=== PATIENT | female | born 2000 | race Caucasian/White ===

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

== ENCOUNTER 2020-06-20 10:36 | Emergency (ER) | payer OTHER, SELFPAY ==
[2018-10-18 16:38] VITALS: BMI 18.1
[2020-06-20] VITALS (12 sets, daily range): BP systolic 97–125; BP diastolic 52–83; PULSE 56–117; RESP 17; TEMP 36.8; O2SAT 96–100; BMI 16.2
--- NOTE | 2020-06-20 11:02 | DI.CT.S_ITS ---
PROCEDURE: CT ABDOMEN PELVIS W CON INDICATIONS: severe sudden R abd pain, hx of abd surgeries. A history of a negative test is also given. TECHNIQUE: After the administration of intravenous contrast, 5 mm thick sections acquired from the diaphragm to the symphysis. 5 mm coronal and sagittal reformats were acquired. For radiation dose reduction, the following was used: automated exposure control, adjustment of mA and/or kV according to patient size. COMPARISON: [facility], CR, XR ACUTE ABDOMEN SERIES, 06/07/2018, 12:21. [facility], RG, CT ABDOMEN/PELVIS WITH CONTRAST, 10/11/2018, 10:47, (Images only, no report). FINDINGS: Image quality: Excellent. ABDOMEN: Lung bases: Lung bases are clear. Heart size is normal. Solid organs: Liver is normal in size and enhancement. Incidental note is made of focal fatty infiltration adjacent to the falciform ligament, which is not regarded to be pathologic. Gallbladder has been removed. Biliary system is non dilated. Pancreas enhances normally. Spleen is normal in size and enhancement. No adrenal nodules. Kidneys demonstrate normal size and enhancement, without hydronephrosis. Peritoneum and bowel: Bowel loops demonstrate normal wall thickness and caliber. No free air is seen. There is a mild amount of complex free fluid seen within the pelvis, which measures approximately 35 Hounsfield units. Scrutiny is given to the appendix. No appendix is definitely seen, either normal or abnormal. Nodes and vessels: No retroperitoneal or mesenteric adenopathy by size criteria. Aorta and inferior vena cava are normal in size. Miscellaneous: No ventral hernias. PELVIS: Genitourinary: Bladder wall thickness is normal. The uterus appears normal for age. No adnexal masses are seen. Miscellaneous: No inguinal hernias or adenopathy. Bones: No suspicious bony lesions. No vertebral body compression fractures. IMPRESSION: Status post cholecystectomy, without a complication observed. A mild amount of complex free fluid can be seen within the pelvis. Given the negative test, this is felt most likely to be related to a ruptured hemorrhagic cyst. If clinically appropriate, please consider a follow-up pelvic ultrasound for further evaluation. No appendix (either normal or abnormal) is identified on this study. Dictated by: Jama Marcus M.D. on 06/20/2020 at 11:54 Approved by: Jama Marcus M.D. on 06/20/2020 at 12:00
--- NOTE | 2020-06-20 11:05 | ED.ABDPAIN ---
HPI - Abdominal Pain <EDGAR Elizalde - Last Filed: 06/20/20 15:49> General Chief Complaint: Abdominal Pain Stated Complaint: ADOMINAL PAIN Time Seen by Provider: 06/20/20 10:43 Source: patient Mode of arrival: Wheelchair Limitations: no limitations History of Present Illness HPI narrative: 20-year-old female with history of anxiety cholecystectomy, and intussusception, presents to the emergency department for sudden onset of severe abdominal pain that started a few hours ago. She has a history of multiple abdominal surgeries including cholecystectomy and removal a polp with follow-up surgery for possible bleeding. Patient usually sees a radiation control technician from [facility], patient loss saw the provider approximately a month ago. However, today she woke up with significant pain. She had dry he when she attempted to urinate. She denies any nausea, has had intermittent diarrhea which is normal for her. Patient denies any fevers, cough, chest pain, shortness of breath, dizziness, or any other concerns. Related Data Home Medications Medication Instructions Recorded Confirmed ranitidine HCl [Zantac] 150 mg PO DAILY 10/18/18 11/13/18 Previous Rx's Medication Instructions Recorded ondansetron HCl [Zofran] 8 mg PO BID-TID PRN #14 tab 10/23/18 oxycodone-acetaminophen [Percocet] 1 tab PO Q4-6H PRN #14 tab 10/23/18 Allergies Allergy/AdvReac Type Severity Reaction Status Date / Time metoclopramide [From Reglan] AdvReac Anxiety Verified 06/20/20 10:58 Review of Systems <EDGAR Elizalde - Last Filed: 06/20/20 15:49> Review of Systems Narrative: REVIEW OF SYSTEMS: GENERAL: Denies fevers. HENT: No head trauma. CARDIOVASCULAR: No chest pain, palpitations, or orthopnea. RESPIRATORY: No shortness of breath or cough. GASTROINTESTINAL: Complains of abdominal pain, see HPI GENITOURINARY: No flank pain. MUSCULOSKELETAL: No pain, weakness, or trauma. INTEGUMENTARY: No rash, lesions, or pruritus. NEURO: No numbness, tingling, memory loss, confusion, or headaches. PSYCH: No behavior or mood changes. Patient History <EDGAR Elizalde - Last Filed: 06/20/20 15:49> Medical History (Updated 06/20/20 @ 14:51 by EDGAR Elizalde) Anxiety Biliary dyskinesia Chronic abdominal pain Gilbert disease History of Meckel's diverticulum Migraine Surgical History History of arthroscopic knee surgery Hx of cholecystectomy (06/25/18) Family History (Updated 10/19/18 @ 18:24 by Lola Parish DO) Mother Healthy adult Father Healthy adult Sister Healthy adult Sister Healthy adult Sister Healthy adult Social History household members: significant other and other occupational status: student Smoking Status: Never smoker alcohol intake: never substance use type: marijuana Smoking Status: Never smoker alcohol intake frequency: a few times a month Substance Use Type: marijuana Exam <EDGAR Elizalde - Last Filed: 06/20/20 15:49> Initial Vital Signs Initial Vital Signs: Vital Signs Temperature 98.2 F 06/20/20 10:50 Pulse Rate 117 H 06/20/20 10:50 Respiratory Rate 17 06/20/20 10:50 Blood Pressure 125/82 06/20/20 10:50 Pulse Oximetry 100 06/20/20 10:50 PHYSICAL EXAMINATION: GENERAL: Awake and alert, appears to be in pain. HENT: Normocephalic, atraumatic. Hearing intact. Oral mucosa is pink and moist. EYES: Conjunctiva pink, sclera white, no periorbital swelling. CARDIOVASCULAR: S1 and S2 sounds normal. Tachycardia, no murmurs, clicks, or bruits. No pedal edema. RESPIRATORY: Normal respiratory rate, trachea midline, airway patent. No stridor, nasal flaring or accessory muscle use. Lungs are clear in all [place] without wheeze, rhonchi, or crackles. GASTROINTESTINAL: Bowel sounds decreased. Diffuse significant abdominal pain, appears to be slightly worse on the right side. Patient resisting examination. GENITALURINARY: No flank tenderness. MUSCULOSKELETAL: Normal gait and coordination. Equal tone and mass bilaterally. EXTREMITIES: CMS intact, no pedal edema. SKIN: Warm, dry, soft, appropriate color for ethnicity. No lesions, rashes, or wounds to visualized areas. NEURO: Alert and Oriented X 3. Good coordination. No ataxia, or sensory deficits, or cognitive issues. PSYCH: Appropriate affect and mood. <Silvano Dawson DO - Last Filed: 06/20/20 18:22> Initial Vital Signs Initial Vital Signs: Vital Signs Temperature 98.2 F 06/20/20 10:50 Pulse Rate 117 H 06/20/20 10:50 Respiratory Rate 17 06/20/20 10:50 Blood Pressure 125/82 06/20/20 10:50 Pulse Oximetry 100 06/20/20 10:50 Course <EDGAR Elizalde - Last Filed: 06/20/20 15:49> Course Course Narrative: Initially patient reported significant pain, was given Toradol and then hydrocodone. You reported significant improvement. Was able to sleep post medication. Patient was given fluids, lactate was redrawn. Orders Ordered: ED Orders 06/20/20 11:02 CT abdomen pelvis w con Stat 06/20/20 11:30 Complete Blood Count AUTO DIFF Stat Comprehensive Metabolic Panel Stat Lactate (Lactic Acid) Stat Lipase Stat Test Serum,Qual Stat Procalcitonin Stat 06/20/20 12:15 Blood Culture Stat 06/20/20 12:17 COVID19 Stat Discontinued Medications Hydromorphone HCl (Hydromorphone 1 Mg Inj) 0.5 mg IV NOW ONE Stop: 06/20/20 12:18 Last Admin: 06/20/20 12:25 Dose: 0.5 mg Documented by: MMINOR Sodium Chloride (Normal Saline 0.9%) 1,000 mls @ 1,000 mls/hr IV BOLUS ONE Stop: 06/20/20 12:00 Last Infusion: 06/20/20 12:40 Dose: 0 mls/hr Documented by: Admin: 06/20/20 11:39 Dose: 1,000 mls/hr Documented by: MMINOR Sodium Chloride (Normal Saline 0.9%) 1,456.02 mls @ 485.34 mls/hr 30 ml/kg infuse over 3 hr (1456.02 ml) IV NOW ONE Stop: 06/20/20 15:30 Last Infusion: 06/20/20 15:10 Dose: 0 mls/hr Documented by: Admin: 06/20/20 13:22 Dose: 485.34 mls/hr Documented by: MMINOR Piperacillin/Tazobactam/Dextrose (Zosyn) 3.375 gm in 50 mls @ 100 mls/hr IV NOW ONE Stop: 06/20/20 13:03 Ketorolac Tromethamine (Ketorolac 60 Mg/2 Ml Vial) 30 mg IV NOW ONE Stop: 06/20/20 11:02 Last Admin: 06/20/20 11:39 Dose: 30 mg Documented by: MMINOR Ondansetron HCl (Ondansetron 4 Mg/2 Ml Inj) 4 mg IV NOW ONE Stop: 06/20/20 11:02 Last Admin: 06/20/20 11:39 Dose: 4 mg Documented by: MMINOR Ondansetron HCl (Ondansetron 4 Mg/2 Ml Inj) 4 mg IV NOW ONE Stop: 06/20/20 12:18 Last Admin: 06/20/20 12:25 Dose: 4 mg Documented by: MADELYNR Consultations Consultation #1: [id number]: Patient staffed with Dr. Dawson, discussed test, test results, plan of care. Discussed discharge as well. Vital Signs Vital signs: Vital Signs - 8 hr 06/20/20 10:50 06/20/20 10:57 06/20/20 11:00 Temperature 98.2 F Pulse Rate 117 H 112 H 111 H Respiratory Rate 17 Blood Pressure 125/82 125/82 121/83 Pulse Oximetry 100 99 99 06/20/20 11:30 06/20/20 12:00 06/20/20 12:57 Temperature Pulse Rate 90 72 Respiratory Rate Blood Pressure 124/78 119/70 Pulse Oximetry 98 99 100 06/20/20 12:58 06/20/20 13:00 06/20/20 13:30 Temperature Pulse Rate 78 73 66 Respiratory Rate Blood Pressure 97/52 L 98/56 L 97/56 L Pulse Oximetry 96 96 99 06/20/20 14:00 06/20/20 14:30 06/20/20 15:00 Temperature Pulse Rate 61 56 L 71 Respiratory Rate Blood Pressure 101/59 L 99/54 L 113/63 Pulse Oximetry 100 98 100 <Silvano Dawson, DO - Last Filed: 06/20/20 18:22> Orders Ordered: ED Orders 06/20/20 11:02 CT abdomen pelvis w con Stat 06/20/20 11:30 Complete Blood Count AUTO DIFF Stat Comprehensive Metabolic Panel Stat Lactate (Lactic Acid) Stat Lipase Stat Test Serum,Qual Stat Procalcitonin Stat 06/20/20 12:15 Blood Culture Stat 06/20/20 12:17 COVID19 Stat Discontinued Medications Hydromorphone HCl (Hydromorphone 1 Mg Inj) 0.5 mg IV NOW ONE Stop: 06/20/20 12:18 Last Admin: 06/20/20 12:25 Dose: 0.5 mg Documented by: MMINOR Sodium Chloride (Normal Saline 0.9%) 1,000 mls @ 1,000 mls/hr IV BOLUS ONE Stop: 06/20/20 12:00 Last Infusion: 06/20/20 12:40 Dose: 0 mls/hr Documented by: Admin: 06/20/20 11:39 Dose: 1,000 mls/hr Documented by: MMINOR Sodium Chloride (Normal Saline 0.9%) 1,456.02 mls @ 485.34 mls/hr 30 ml/kg infuse over 3 hr (1456.02 ml) IV NOW ONE Stop: 06/20/20 15:30 Last Infusion: 06/20/20 15:10 Dose: 0 mls/hr Documented by: Admin: 06/20/20 13:22 Dose: 485.34 mls/hr Documented by: DOMINIQUE Piperacillin/Tazobactam/Dextrose (Zosyn) 3.375 gm in 50 mls @ 100 mls/hr IV NOW ONE Stop: 06/20/20 13:03 Ketorolac Tromethamine (Ketorolac 60 Mg/2 Ml Vial) 30 mg IV NOW ONE Stop: 06/20/20 11:02 Last Admin: 06/20/20 11:39 Dose: 30 mg Documented by: MMINOR Ondansetron HCl (Ondansetron 4 Mg/2 Ml Inj) 4 mg IV NOW ONE Stop: 06/20/20 11:02 Last Admin: 06/20/20 11:39 Dose: 4 mg Documented by: MMINOR Ondansetron HCl (Ondansetron 4 Mg/2 Ml Inj) 4 mg IV NOW ONE Stop: 06/20/20 12:18 Last Admin: 06/20/20 12:25 Dose: 4 mg Documented by: MMLEONELAR Vital Signs Vital signs: Vital Signs - 8 hr 06/20/20 10:50 06/20/20 10:57 06/20/20 11:00 Temperature 98.2 F Pulse Rate 117 H 112 H 111 H Respiratory Rate 17 Blood Pressure 125/82 125/82 121/83 Pulse Oximetry 100 99 99 06/20/20 11:30 06/20/20 12:00 06/20/20 12:57 Temperature Pulse Rate 90 72 Respiratory Rate Blood Pressure 124/78 119/70 Pulse Oximetry 98 99 100 06/20/20 12:58 06/20/20 13:00 06/20/20 13:30 Temperature Pulse Rate 78 73 66 Respiratory Rate Blood Pressure 97/52 L 98/56 L 97/56 L Pulse Oximetry 96 96 99 06/20/20 14:00 06/20/20 14:30 06/20/20 15:00 Temperature Pulse Rate 61 56 L 71 Respiratory Rate Blood Pressure 101/59 L 99/54 L 113/63 Pulse Oximetry 100 98 100 MDM - Abdominal Pain <EDGAR Elizalde - Last Filed: 06/20/20 15:49> Medical Records Attestation: I reviewed the patient's medical records. Lab Data Attestation: I reviewed the patient's lab results. Result diagrams: 06/20/20 11:30 06/20/20 11:30 Labs: Lab Results 06/20/20 06/20/20 06/20/20 Range/Units 11:30 11:30 11:30 WBC 7.5 (4.5-11.0) X10^3/uL RBC 4.60 (4.0-5.2) X10^6/uL Hgb 14.3 (12.0-16.0) g/dL Hct 41.2 (36-46) % MCV 89.4 (80-100) fL MCH 31.0 (26-34) PG MCHC 34.7 (30-36) % RDW 12.3 (11.6-14.8) % Plt Count 360 (150-400) X10^3/uL Neut % (Auto) 76.6 H (50-75) % Lymph % (Auto) 17.5 L (25-40) % [place] % (Auto) 5.1 (3-14) % Eos % (Auto) 0.4 L (2-4) % Baso % (Auto) 0.4 (0-2) % Neut # (Auto) 5700 (2206-1773) /uL Lymph # (Auto) 1300 (4562-8400) /uL [place] # (Auto) 400 (0-900) /uL Eos # (Auto) 0 (0-450) /uL Baso # (Auto) 0 (0-100) /uL Sodium 140 (137-145) mmol/L Potassium 4.0 (3.4-5.1) mmol/L Chloride 107 (98-107) mmol/L Carbon Dioxide 22 (22-32) mmol/L BUN 7 (7-17) mg/dL Creatinine 0.77 (0.52-1.04) mg/dL Estimated GFR > 60.0 (>60) mL/min BUN/Creatinine Ratio 9.1 (6-22) Glucose 118 H (70-100) mg/dL Lactate 5.2 H* (0.7-2.1) mmol/L Calcium 9.4 (8.4-10.2) mg/dL Total Bilirubin 1.5 H (0.2-1.3) mg/dL AST 21 (14-36) IU/L ALT 15 (<35) IU/L Alkaline Phosphatase 66 (38-126) U/L Total Protein 7.2 (6.3-8.2) g/dL Albumin 4.5 (3.5-5.0) g/dL Globulin 2.7 (1.7-4.1) g/dL Albumin/Globulin Ratio 1.7 (1.0-2.8) Lipase 75 (23-300) U/L Procalcitonin (<0.5) ng/mL Serum , Qual (Negative) COVID-19 PCR (Negative) 06/20/20 06/20/20 06/20/20 Range/Units 11:30 11:30 12:17 WBC (4.5-11.0) X10^3/uL RBC (4.0-5.2) X10^6/uL Hgb (12.0-16.0) g/dL Hct (36-46) % MCV (80-100) fL MCH (26-34) PG MCHC (30-36) % RDW (11.6-14.8) % Plt Count (150-400) X10^3/uL Neut % (Auto) (50-75) % Lymph % (Auto) (25-40) % [place] % (Auto) (3-14) % Eos % (Auto) (2-4) % Baso % (Auto) (0-2) % Neut # (Auto) (0327-8396) /uL Lymph # (Auto) (0698-7966) /uL [place] # (Auto) (0-900) /uL Eos # (Auto) (0-450) /uL Baso # (Auto) (0-100) /uL Sodium (137-145) mmol/L Potassium (3.4-5.1) mmol/L Chloride (98-107) mmol/L Carbon Dioxide (22-32) mmol/L BUN (7-17) mg/dL Creatinine (0.52-1.04) mg/dL Estimated GFR (>60) mL/min BUN/Creatinine Ratio (6-22) Glucose (70-100) mg/dL Lactate (0.7-2.1) mmol/L Calcium (8.4-10.2) mg/dL Total Bilirubin (0.2-1.3) mg/dL AST (14-36) IU/L ALT (<35) IU/L Alkaline Phosphatase (38-126) U/L Total Protein (6.3-8.2) g/dL Albumin (3.5-5.0) g/dL Globulin (1.7-4.1) g/dL Albumin/Globulin Ratio (1.0-2.8) Lipase (23-300) U/L Procalcitonin < 0.05 (<0.5) ng/mL Serum , Qual Negative (Negative) COVID-19 PCR Negative (Negative) 06/20/20 Range/Units 13:57 WBC (4.5-11.0) X10^3/uL RBC (4.0-5.2) X10^6/uL Hgb (12.0-16.0) g/dL Hct (36-46) % MCV (80-100) fL MCH (26-34) PG MCHC (30-36) % RDW (11.6-14.8) % Plt Count (150-400) X10^3/uL Neut % (Auto) (50-75) % Lymph % (Auto) (25-40) % [place] % (Auto) (3-14) % Eos % (Auto) (2-4) % Baso % (Auto) (0-2) % Neut # (Auto) (2234-3070) /uL Lymph # (Auto) (5730-4101) /uL [place] # (Auto) (0-900) /uL Eos # (Auto) (0-450) /uL Baso # (Auto) (0-100) /uL Sodium (137-145) mmol/L Potassium (3.4-5.1) mmol/L Chloride (98-107) mmol/L Carbon Dioxide (22-32) mmol/L BUN (7-17) mg/dL Creatinine (0.52-1.04) mg/dL Estimated GFR (>60) mL/min BUN/Creatinine Ratio (6-22) Glucose (70-100) mg/dL Lactate 1.2 (0.7-2.1) mmol/L Calcium (8.4-10.2) mg/dL Total Bilirubin (0.2-1.3) mg/dL AST (14-36) IU/L ALT (<35) IU/L Alkaline Phosphatase (38-126) U/L Total Protein (6.3-8.2) g/dL Albumin (3.5-5.0) g/dL Globulin (1.7-4.1) g/dL Albumin/Globulin Ratio (1.0-2.8) Lipase (23-300) U/L Procalcitonin (<0.5) ng/mL Serum , Qual (Negative) COVID-19 PCR (Negative) Imaging Data CT scan - abdomen/pelvis: Radiologist's Impression: [address] [id number] Scan ReportSigned Patient: Vanessa Ortiz EMR#: [id number]: 2000:[id number]/Sex: 20 / FDate of Service: 06/20/20Loc: EDAccession Number: [id number] Procedure: CT abdomen pelvis w con Ordering Provider: Mercy Payne PROCEDURE: CT ABDOMEN PELVIS W CON INDICATIONS: severe sudden R abd pain, hx of abd surgeries. A history of a negative test is also given. TECHNIQUE: After the administration of intravenous contrast, 5 mm thick sections acquired from the diaphragm to the symphysis. 5 mm coronal and sagittal reformats were acquired. For radiation dose reduction, the following was used: automated exposure control, adjustment of mA and/or kV according to patient size. COMPARISON: [facility], , XR ACUTE ABDOMEN SERIES, 06/07/2018, 12:21. [facility], RG, CT ABDOMEN/PELVIS WITH CONTRAST, 10/11/2018, 10:47, (Images only, no report). FINDINGS: Image quality: Excellent. ABDOMEN: Lung bases: Lung bases are clear. Heart size is normal. Solid organs: Liver is normal in size and enhancement. Incidental note is made of focal fatty infiltration adjacent to the falciform ligament, which is not regarded to be pathologic. Gallbladder has been removed. Biliary system is non dilated. Pancreas enhances normally. Spleen is normal in size and enhancement. No adrenal nodules. Kidneys demonstrate normal size and enhancement, without hydronephrosis. Peritoneum and bowel: Bowel loops demonstrate normal wall thickness and caliber. No free air is seen. There is a mild amount of complex free fluid seen within the pelvis, which measures approximately 35 Hounsfield units. Scrutiny is given to the appendix. No appendix is definitely seen, either normal or abnormal. Nodes and vessels: No retroperitoneal or mesenteric adenopathy by size criteria. Aorta and inferior vena cava are normal in size. Miscellaneous: No ventral hernias. PELVIS: Genitourinary: Bladder wall thickness is normal. The uterus appears normal for age. No adnexal masses are seen. Miscellaneous: No inguinal hernias or adenopathy. Bones: No suspicious bony lesions. No vertebral body compression fractures. IMPRESSION: Status post cholecystectomy, without a complication observed. A mild amount of complex free fluid can be seen within the pelvis. Given the negative test, this is felt most likely to be related to a ruptured hemorrhagic cyst. If clinically appropriate, please consider a follow-up pelvic ultrasound for further evaluation. No appendix (either normal or abnormal) is identified on this study. Dictated by: Jama Marcus M.D. on 06/20/2020 at 11:54 Approved by: Jama Marcus M.D. on 06/20/2020 at 12:00 [facility] Narrative Medical decision making narrative: History and examination concerning for ruptured hemorrhagic ovarian cyst. I suspect this is most likely a cause for pain. Less concern for acute abdominal etiology given negative findings on CT. However, appendix was not visualized. Well lactate was initially significantly elevated, redraw after fluids was 1.7. Patient was initially tachycardic, this also decreased with fluids. Patient does not have any other symptoms of infection such as an elevated white blood cell count, fever, or concerning findings in urinalysis. Pain significantly improved after administration of pain medication. Patient recently had a bowel movement today which was normal for her. Vomiting subsided after pain was controlled. Patient was counseled extensively to return emergency department for any new or worsening symptoms as appendix was not visualized and appendicitis cannot be ruled out. However, this is less likely as symptoms have resolved and appendicitis usually presents with some swelling around the appendix making more visible. Patient was encouraged to follow up with PCP for further evaluation as well as radiation control technician. <Silvano Dawson, DO - Last Filed: 06/20/20 18:22> Lab Data Labs: Lab Results 06/20/20 06/20/20 06/20/20 Range/Units 11:30 11:30 11:30 WBC 7.5 (4.5-11.0) X10^3/uL RBC 4.60 (4.0-5.2) X10^6/uL Hgb 14.3 (12.0-16.0) g/dL Hct 41.2 (36-46) % MCV 89.4 (80-100) fL MCH 31.0 (26-34) PG MCHC 34.7 (30-36) % RDW 12.3 (11.6-14.8) % Plt Count 360 (150-400) X10^3/uL Neut % (Auto) 76.6 H (50-75) % Lymph % (Auto) 17.5 L (25-40) % [place] % (Auto) 5.1 (3-14) % Eos % (Auto) 0.4 L (2-4) % Baso % (Auto) 0.4 (0-2) % Neut # (Auto) 5700 (3887-8918) /uL Lymph # (Auto) 1300 (5629-7462) /uL [place] # (Auto) 400 (0-900) /uL Eos # (Auto) 0 (0-450) /uL Baso # (Auto) 0 (0-100) /uL Sodium 140 (137-145) mmol/L Potassium 4.0 (3.4-5.1) mmol/L Chloride 107 (98-107) mmol/L Carbon Dioxide 22 (22-32) mmol/L BUN 7 (7-17) mg/dL Creatinine 0.77 (0.52-1.04) mg/dL Estimated GFR > 60.0 (>60) mL/min BUN/Creatinine Ratio 9.1 (6-22) Glucose 118 H (70-100) mg/dL Lactate 5.2 H* (0.7-2.1) mmol/L Calcium 9.4 (8.4-10.2) mg/dL Total Bilirubin 1.5 H (0.2-1.3) mg/dL AST 21 (14-36) IU/L ALT 15 (<35) IU/L Alkaline Phosphatase 66 (38-126) U/L Total Protein 7.2 (6.3-8.2) g/dL Albumin 4.5 (3.5-5.0) g/dL Globulin 2.7 (1.7-4.1) g/dL Albumin/Globulin Ratio 1.7 (1.0-2.8) Lipase 75 (23-300) U/L Procalcitonin (<0.5) ng/mL Serum , Qual (Negative) COVID-19 PCR (Negative) 06/20/20 06/20/20 06/20/20 Range/Units 11:30 11:30 12:17 WBC (4.5-11.0) X10^3/uL RBC (4.0-5.2) X10^6/uL Hgb (12.0-16.0) g/dL Hct (36-46) % MCV (80-100) fL MCH (26-34) PG MCHC (30-36) % RDW (11.6-14.8) % Plt Count (150-400) X10^3/uL Neut % (Auto) (50-75) % Lymph % (Auto) (25-40) % [place] % (Auto) (3-14) % Eos % (Auto) (2-4) % Baso % (Auto) (0-2) % Neut # (Auto) (5090-1247) /uL Lymph # (Auto) (5255-6170) /uL [place] # (Auto) (0-900) /uL Eos # (Auto) (0-450) /uL Baso # (Auto) (0-100) /uL Sodium (137-145) mmol/L Potassium (3.4-5.1) mmol/L Chloride (98-107) mmol/L Carbon Dioxide (22-32) mmol/L BUN (7-17) mg/dL Creatinine (0.52-1.04) mg/dL Estimated GFR (>60) mL/min BUN/Creatinine Ratio (6-22) Glucose (70-100) mg/dL Lactate (0.7-2.1) mmol/L Calcium (8.4-10.2) mg/dL Total Bilirubin (0.2-1.3) mg/dL AST (14-36) IU/L ALT (<35) IU/L Alkaline Phosphatase (38-126) U/L Total Protein (6.3-8.2) g/dL Albumin (3.5-5.0) g/dL Globulin (1.7-4.1) g/dL Albumin/Globulin Ratio (1.0-2.8) Lipase (23-300) U/L Procalcitonin < 0.05 (<0.5) ng/mL Serum , Qual Negative (Negative) COVID-19 PCR Negative (Negative) 06/20/20 Range/Units 13:57 WBC (4.5-11.0) X10^3/uL RBC (4.0-5.2) X10^6/uL Hgb (12.0-16.0) g/dL Hct (36-46) % MCV (80-100) fL MCH (26-34) PG MCHC (30-36) % RDW (11.6-14.8) % Plt Count (150-400) X10^3/uL Neut % (Auto) (50-75) % Lymph % (Auto) (25-40) % [place] % (Auto) (3-14) % Eos % (Auto) (2-4) % Baso % (Auto) (0-2) % Neut # (Auto) (6850-1925) /uL Lymph # (Auto) (5126-9635) /uL [place] # (Auto) (0-900) /uL Eos # (Auto) (0-450) /uL Baso # (Auto) (0-100) /uL Sodium (137-145) mmol/L Potassium (3.4-5.1) mmol/L Chloride (98-107) mmol/L Carbon Dioxide (22-32) mmol/L BUN (7-17) mg/dL Creatinine (0.52-1.04) mg/dL Estimated GFR (>60) mL/min BUN/Creatinine Ratio (6-22) Glucose (70-100) mg/dL Lactate 1.2 (0.7-2.1) mmol/L Calcium (8.4-10.2) mg/dL Total Bilirubin (0.2-1.3) mg/dL AST (14-36) IU/L ALT (<35) IU/L Alkaline Phosphatase (38-126) U/L Total Protein (6.3-8.2) g/dL Albumin (3.5-5.0) g/dL Globulin (1.7-4.1) g/dL Albumin/Globulin Ratio (1.0-2.8) Lipase (23-300) U/L Procalcitonin (<0.5) ng/mL Serum , Qual (Negative) COVID-19 PCR (Negative) Discharge Plan Departure Patient Disposition: Home Clinical Impression: Ruptured ovarian cyst Instructions: DI for Ovarian Cyst Activity Restrictions/Additional Instructions: Thank you for entrusting me with your care today. As discussed, your CT shows a ruptured hemorrhagic ovarian cyst. I suspect this is most likely the cause of your pain. However, we could not visualize the appendix. If you develop worsening pain, fevers, uncontrollable vomiting, or any worsening concerns, please report to the emergency department immediately. Follow-up with your radiation control technician as soon as possible. Prescriptions: No Action ranitidine HCl [Zantac] 150 mg Tablet 150 mg PO DAILY RF: 0 ondansetron HCl [Zofran] 8 mg tablet 8 mg PO BID-TID PRN (Reason: nausea and vomiting) Qty: 14 RF: 0 oxycodone-acetaminophen [Percocet] 5-325 mg tablet 1 tab PO Q4-6H PRN (Reason: pain) Qty: 14 RF: 0 Referrals: Romero Betancourt MD [Primary Care Provider] - <Silvano Dawson DO - Last Filed: 06/20/20 18:22> Cosign ED Attending Cosignature Attestation: I was immediately available in the department for consultation. This documentation has been reviewed and I agree with assessment and plan. Supervised by Silvano Dawson DO
[2020-06-20] MEDS: SODIUM CHLORIDE 0.9% 1,000 ML 1000 ML IV (11:39)
[2020-06-20] MEDS: ONDANSETRON 4 MG/2 ML INJ IV ×2 (11:39→12:25)
[2020-06-20] MEDS: KETOROLAC 60 MG/2 ML VIAL 30 MG IV (11:39)
[2020-06-20 11:44] LABS: Add Manual Diff / Slide Review NO; Basophils Absolute Auto 0 /uL (0-100); Basophils Percent Auto 0.4 % (0-2); Eosinophils Absolute Auto 0 /uL (0-450); Eosinophils Percent Auto 0.4 % (2-4); Hematocrit 41.2 % (36-46); Hemoglobin 14.3 g/dL (12.0-16.0); Lymphocytes Absolute Auto 1300 /uL (1100-4500); Lymphocytes Percent Auto 17.5 % (25-40); Mean Corpuscular HGB Conc 34.7 % (30-36); Mean Corpuscular Volume 89.4 fL (80-100); Monocytes Absolute Auto 400 /uL (0-900); Monocytes Percent Auto 5.1 % (3-14); Neutrophils Absolute Auto 5700 /uL (1500-7000); Neutrophils Percent Auto 76.6 % (50-75); Platelet Count 360 X10^3/uL (150-400); Red Cell Distribution Width 12.3 % (11.6-14.8); White Blood Cell Count 7.5 X10^3/uL (4.5-11.0)
[2020-06-20 11:52] LABS: Alanine Aminotransferase 15 IU/L (<35); Albumin 4.5 g/dL (3.5-5.0); Albumin Globulin Ratio 1.7 (1.0-2.8); Alkaline Phosphatase 66 U/L (38-126); Aspartate Aminotransferase 21 IU/L (14-36); BUN Creatinine Ratio 9.1 (6-22); Bilirubin Total 1.5 mg/dL (0.2-1.3); Blood Urea Nitrogen 7 mg/dL (7-17); Calcium 9.4 mg/dL (8.4-10.2); Carbon Dioxide 22 mmol/L (22-32); Chloride 107 mmol/L (98-107); Estimated Glomerular Filt Rate > 60.0 mL/min (>60); Globulin 2.7 g/dL (1.7-4.1); Glucose 118 mg/dL (70-100); HEMOLYSIS < 15 (0-50); Lipase 75 U/L (23-300); Sodium 140 mmol/L (137-145); Total Protein 7.2 g/dL (6.3-8.2)
[2020-06-20 11:59] LABS: Pregnancy Test Serum,Qual Negative (Negative)
[2020-06-20 12:05] LABS: Lactate (Lactic Acid) 5.2 mmol/L (0.7-2.1)
[2020-06-20] MEDS: HYDROMORPHONE 1 MG INJ 0.5 MG IV (12:25)
[2020-06-20 12:37] LABS: Procalcitonin < 0.05 ng/mL (<0.5)
[2020-06-20 12:38] LABS: COVID19 -Nasal RAPID Negative (Negative)
[2020-06-20] MEDS: SODIUM CHLORIDE 0.9% 485.34 ML IV (13:22)
[2020-06-20 13:42] LABS: Reflexed Lactate in 2 Hours Y
[2020-06-20 14:13] LABS: Lactate 2HR (Lactic Acid Rflx) 1.2 mmol/L (0.7-2.1)
== END 2020-06-20 15:14 | disposition home or self-care (01) ==
PROVIDERS: Emergency Provider Nurse Practitioner; PCP Family Medicine
DX: N83.299 Other ovarian cyst, unspecified side (principal); Z20.828 Contact with and (suspected) exposure to other viral communicable diseases
CPT/HCPCS: 36415; 74177; 80053; 83605; 83690; 84145; 84703; 85025; 87040; 87635; 96361; 96374; 96375; 96376; 99284; J1170; J1885; J2405; Q9967

== ENCOUNTER → 2021-12-10 11:15 | Outpatient (CLI) | payer OTHER, SELFPAY ==
[2018-10-18 16:38] VITALS: BMI 18.1
[2021-12-10 11:55] LABS: Add Manual Diff / Slide Review NO; Basophils Absolute Auto 0 /uL (0-100); Basophils Percent Auto 0.4 % (0-2); Eosinophils Absolute Auto 0 /uL (0-450); Eosinophils Percent Auto 0.4 % (2-4); Hemoglobin 14.5 g/dL (12.0-16.0); Lymphocytes Absolute Auto 1400 /uL (1100-4500); Lymphocytes Percent Auto 16.7 % (25-40); Mean Corpuscular HGB Conc 35.4 % (30-36); Mean Corpuscular Volume 87.6 fL (80-100); Monocytes Absolute Auto 400 /uL (0-900); Monocytes Percent Auto 4.5 % (3-14); Neutrophils Absolute Auto 6600 /uL (1500-7000); Platelet Count 333 X10^3/uL (150-400); Red Blood Cell Count 4.68 X10^6/uL (4.0-5.2); Red Cell Distribution Width 12.6 % (11.6-14.8); White Blood Cell Count 8.5 X10^3/uL (4.5-11.0)
[2021-12-11 01:11] LABS: Glucose 105 mg/dL (70-100)
[2021-12-11 05:44] LABS: Insulin Level Total 17.4 uIU/mL (2.6-24.9)
[2021-12-11 09:16] LABS: Follicle Stimulating Hormone 5.55 mIU/mL; Luteinizing Hormone 19.4 mIU/mL
== END ==
PROVIDERS: PCP Family Medicine; Referring Provider Obstetrics & Gynecology; Visit Provider Obstetrics & Gynecology
DX: E28.2 Polycystic ovarian syndrome (principal)
CPT/HCPCS: 36415; 82947; 83001; 83002; 83525; 85025

== ENCOUNTER 2022-06-04 16:43 | Emergency (ER) | payer OTHER, SELFPAY ==
[2018-10-18 16:38] VITALS: BMI 18.1
[2022-06-04] VITALS (15 sets, daily range): BP systolic 96–126; BP diastolic 56–86; PULSE 64–120; RESP 10–38; TEMP 36.9; O2SAT 92–100; BMI 16.2
[2022-06-04] MEDS: ONDANSETRON 4 MG/2 ML INJ IV ×2 (17:06→17:44)
[2022-06-04 17:16] LABS: Add Manual Diff / Slide Review NO; Basophils Absolute Auto 100 /uL (0-100); Basophils Percent Auto 0.7 % (0-2); Eosinophils Absolute Auto 0 /uL (0-450); Eosinophils Percent Auto 0.1 % (2-4); Hematocrit 37.7 % (36-46); Hemoglobin 13.2 g/dL (12.0-16.0); Lymphocytes Absolute Auto 2600 /uL (1100-4500); Lymphocytes Percent Auto 28.9 % (25-40); Mean Corpuscular Hemoglobin 30.8 PG (26-34); Mean Corpuscular Volume 87.8 fL (80-100); Monocytes Absolute Auto 500 /uL (0-900); Monocytes Percent Auto 5.9 % (3-14); Neutrophils Absolute Auto 5700 /uL (1500-7000); Neutrophils Percent Auto 64.4 % (50-75); Platelet Count 499 X10^3/uL (150-400); Red Blood Cell Count 4.29 X10^6/uL (4.0-5.2); Red Cell Distribution Width 12.5 % (11.6-14.8); White Blood Cell Count 8.9 X10^3/uL (4.5-11.0)
[2022-06-04 17:26] LABS: Alanine Aminotransferase 28 IU/L (<35); Albumin 4.7 g/dL (3.5-5.0); Albumin Globulin Ratio 1.7 (1.0-2.8); Alkaline Phosphatase 65 U/L (38-126); Aspartate Aminotransferase 32 IU/L (14-36); BUN Creatinine Ratio 14.1 (6-22); Bilirubin Total 1.7 mg/dL (0.2-1.3); Blood Urea Nitrogen 9 mg/dL (7-17); Calcium 9.4 mg/dL (8.4-10.2); Carbon Dioxide 15 mmol/L (22-32); Chloride 107 mmol/L (98-107); Estimated Glomerular Filt Rate > 60 mL/min (>60); Globulin 2.7 g/dL (1.7-4.1); Glucose 149 mg/dL (70-100); HEMOLYSIS < 15 (0-50); Lipase 328 U/L (23-300); Potassium 3.3 mmol/L (3.4-5.1); Sodium 140 mmol/L (137-145); Total Protein 7.4 g/dL (6.3-8.2)
[2022-06-04] MEDS: SODIUM CHLORIDE 0.9% 1,000 ML 1000 ML IV (17:43)
[2022-06-04] MEDS: DEXAMETHASONE 10 MG/ML VIAL IV (17:44)
[2022-06-04] MEDS: FAMOTIDINE 20 MG/2 ML VIAL IV (17:44)
[2022-06-04] MEDS: POTASSIUM CHLORIDE IN WATER 10 MEQ/100 ML PIGGYBACK 100 MEQ IV (17:45)
--- NOTE | 2022-06-04 19:12 | DI.CT.S_ITS ---
PROCEDURE: CT ABDOMEN PELVIS W CON INDICATIONS: acute abdominal pain nausea and vomiting TECHNIQUE: After the administration of intravenous contrast, axial sections acquired from the lung bases to the pubic symphysis. Coronal and sagittal reformats were performed. For radiation dose reduction, the following was used: automated exposure control, adjustment of mA and/or kV according to patient size. COMPARISON: [facility], CT, CT ABDOMEN PELVIS W CON, 06/20/2020, 12:07. FINDINGS: Image quality: Excellent. Lung bases: Unremarkable. Heart: No significant findings. ABDOMEN: Liver: Unremarkable. Gallbladder: Previously resected Biliary ducts: Unremarkable. Pancreas: Unremarkable. Spleen: Unremarkable. Adrenal Glands: Unremarkable. Kidneys and Ureters: Unremarkable. Stomach and Bowel: Stomach, small bowel loops, and colon are unremarkable. Peritoneum: No abnormal intraperitoneal fluid. No free air. Ventral Wall: No hernias. Abdominal Nodes: No retroperitoneal or mesenteric adenopathy by size criteria. Vessels: Aorta and inferior vena cava are normal in size. PELVIS: Pelvic Organs: Unremarkable. Bladder: Unremarkable. Pelvic Nodes: No enlarged lymph nodes. Miscellaneous: No hernias are seen. The anatomy of the lower pelvis is poorly visualized due to absence of oral contrast and relatively small amounts of mesenteric and body wall fat. Bones: Unremarkable. IMPRESSION: Limited quality visualization through the pelvis as discussed above. Repeat CT scanning with oral contrast may be warranted depending on the clinical status. A definite source of reported nausea and vomiting is not seen. Prior cholecystectomy. Dictated by: Jose Maria Riggs M.D. on 06/04/2022 at 20:07 Approved by: Jose Maria Riggs M.D. on 06/04/2022 at 20:10
--- NOTE | 2022-06-04 19:12 | ED.NAVMDI ---
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 Rios, which revealed self infrequent abdominal pain, digestion issues, constipation alternating with diarrhea. Mrs. Ortiz reports acute onset of nausea vomiting abdominal pain which gradually gets worse, patient vomited several times since earlier AM prompting today's visit She denies any fever chills, shortness of breath dyspnea on exertion. Patient admits that she has been losing weight, due to her digestive issues. She believes she has had endoscopy with her experimental plastics fabricator approximately year ago. For gastroparesis, she is on gabapentin, and linaclotide, which overall does control her symptoms until recently. Mrs. Ortiz states that whenever she is upset, it triggers nausea vomiting and abdominal pain. Yesterday she has particular emotional episode, which triggered today's event. Related Data Home Medications Medication Instructions Recorded Confirmed gabapentin 100 mg capsule 100 mg PO DAILY 12/08/21 12/08/21 levonorgestrel 0.15 mg-ethinyl 1 tab PO DAILY 12/08/21 12/08/21 estradiol 30 mcg tablets,3 mos pack(91) (Jolessa) linaclotide 72 mcg capsule 72 mcg PO DAILY 12/08/21 12/08/21 (Linzess) sertraline 100 mg tablet (Zoloft) 100 mg PO DAILY 12/08/21 12/08/21 sertraline 25 mg tablet (Zoloft) 25 mg PO DAILY 12/08/21 12/08/21 Previous Rx's Medication Instructions Recorded metformin 500 mg tablet 250 mg PO DAILY #30 tabs 02/17/22 pantoprazole 40 mg tablet,delayed 40 mg PO DAILY #30 tabs 06/04/22 release Allergies Allergy/AdvReac Type Severity Reaction Status Date / Time metoclopramide [From Reglan] AdvReac Anxiety Verified 06/04/22 17:25 Review of Systems <Asuncion Lopez PA-C - Last Filed: 06/04/22 22:18> Review of Systems Narrative: Eleven system reviewed and negative except as mentioned above in HPI. Patient History <Asuncion Lopez PA-C - Last Filed: 06/04/22 22:18> Medical History (Updated 06/04/22 @ 21:33 by Asuncion Lopez PA-C) Anxiety (~2017) Biliary dyskinesia Chronic abdominal pain Gastroparesis (~2019) Gilbert disease History of Meckel's diverticulum Migraine Ovarian cyst Painful menstrual periods (~2019) Surgical History (Updated 12/25/21 @ 20:32 by Angie Billings) Anesthesia History of abdominal surgery (~2018) History of appendectomy (~2020) History of arthroscopic knee surgery Hx of cholecystectomy (06/25/18) S/P laparoscopic surgery (~2018) Family History (Updated 12/25/21 @ 20:33 by Angie Billings) Mother Healthy adult Father Healthy adult Sister Healthy adult Sister Healthy adult Sister Healthy adult Grandmother Colon cancer Diabetes mellitus Social History household members: significant other and other occupational status: student Smoking Status: Never smoker alcohol intake: never substance use type: marijuana Smoking Status: Never smoker alcohol intake frequency: a few times a month Substance Use Type: marijuana Exam <Asuncion Lopez PA-C - Last Filed: 06/04/22 22:18> Narrative Exam Narrative: GENERAL: 22 year old patient appears stated age. Well-developed patient, in mild distress due to abdominal pain HEAD: Atraumatic. Normocephalic. EYES: Pupils equal round and reactive. Extraocular motions intact. No scleral icterus. No injection or drainage. Pallors noted ENT: Nose without bleeding, purulent drainage. Throat without erythema, tonsillar hypertrophy or exudate. Airway patent. NECK: Trachea midline. Non tender CARDIOVASCULAR: Regular rate and rhythm without murmurs, gallops, or rubs. RESPIRATORY: Clear to auscultation. Breath sounds equal bilaterally. No wheezes, rales, or rhonchi. GASTROINTESTINAL: Abdomen is, quite tender, in epigastric region nondistended. Normal bowel sounds x4 quadrants. EXTREMITIES: No edema or joint tenderness. BACK: Nontender without deformity or crepitance. No flank tenderness. NEURO: AOx3. No focal deficit. SKIN: No rash or erythema of visible areas Initial Vital Signs Initial Vital Signs: Vital Signs Temperature 98.5 F 06/04/22 16:53 Pulse Rate 117 H 06/04/22 16:53 Respiratory Rate 28 H 06/04/22 16:53 Pulse Oximetry 99 06/04/22 16:53 Oxygen Delivery Method 06/04/22 16:53 <Silvano Dawson DO - Last Filed: 06/04/22 23:08> Initial Vital Signs Initial Vital Signs: Vital Signs Temperature 98.5 F 06/04/22 16:53 Pulse Rate 117 H 06/04/22 16:53 Respiratory Rate 28 H 06/04/22 16:53 Pulse Oximetry 99 06/04/22 16:53 Oxygen Delivery Method 06/04/22 16:53 Course <Asuncion Lopez PA-C - Last Filed: 06/04/22 22:18> Course Course Narrative: Patient received IV fluids, famotidine, dexamethasone, Zofran. Despite on this measures, her nausea and vomiting did not stop. Patient did receive Haldol/Benadryl IV, which was quite effective, nausea vomiting resolved Orders Ordered: ED Orders 06/04/22 17:08 Complete Blood Count AUTO DIFF Stat Comprehensive Metabolic Panel Stat Lipase Stat 06/04/22 19:12 CT abdomen pelvis w con Stat 06/04/22 21:24 Urine Culture Stat 06/04/22 21:39 Urine Microscopic Stat Discontinued Medications Dexamethasone (Dexamethasone 10 Mg/Ml Vial) 10 mg IV NOW ONE Stop: 06/04/22 17:33 Last Admin: 06/04/22 17:44 Dose: 10 mg Documented By: BT Diphenhydramine HCl (Diphenhydramine 50 Mg/Ml Vial) 25 mg IV NOW ONE Stop: 06/04/22 20:34 Last Admin: 06/04/22 20:59 Dose: Not Given Documented By: KLS Famotidine (Famotidine 20 Mg/2 Ml Vial) 20 mg IV NOW NERISSA Last Admin: 06/04/22 17:44 Dose: 20 mg Documented By: BT Haloperidol (Haloperidol 5 Mg/Ml Vial) 5 mg IV NOW ONE Stop: 06/04/22 20:17 Last Admin: 06/04/22 20:20 Dose: 5 mg Documented By: SB Sodium Chloride (Normal Saline 0.9%) 1,000 mls @ 1,000 mls/hr IV BOLUS ONE Stop: 06/04/22 18:31 Last Infusion: 06/04/22 20:47 Dose: 0 mls/hr Documented By: Admin: 06/04/22 17:43 Dose: 1,000 mls/hr Documented By: TIFF POTASSIUM CHLORIDE IN WATER (Potassium Cl 10 Meq/100 Ml Meme) 10 meq in 100 mls @ 100 mls/hr IV Q1H NERISSA Stop: 06/05/22 17:44 Last Admin: 06/04/22 19:17 Dose: Not Given Documented By: Infusion: 06/04/22 19:09 Dose: 0 mls/hr Documented By: Admin: 06/04/22 17:45 Dose: 100 mls/hr Documented By: TIFF Ondansetron HCl (Ondansetron 4 Mg/2 Ml Inj) 4 mg IV NOW PRN PRN Reason: Nausea And Vomiting Last Admin: 06/04/22 17:06 Dose: 4 mg Documented By: CHAUNCEY Ondansetron HCl (Ondansetron 4 Mg/2 Ml Inj) 4 mg IV NOW ONE Stop: 06/04/22 17:33 Last Admin: 06/04/22 17:44 Dose: 4 mg Documented By: TIFF Vital Signs Vital signs: Vital Signs - 8 hr 06/04/22 16:53 06/04/22 17:14 06/04/22 17:16 Temperature 98.5 F Pulse Rate 117 H 120 H Respiratory Rate 28 H Blood Pressure 126/77 Pulse Oximetry 99 98 Oxygen Delivery Method Room Air 06/04/22 17:16 06/04/22 17:30 06/04/22 17:31 Temperature Pulse Rate 109 H 94 H Respiratory Rate 38 H 37 H Blood Pressure 118/72 Pulse Oximetry 98 Oxygen Delivery Method 06/04/22 17:31 06/04/22 18:00 06/04/22 18:30 Temperature Pulse Rate 92 H 99 H 64 Respiratory Rate 34 H 27 H 10 L Blood Pressure Pulse Oximetry Oxygen Delivery Method 06/04/22 19:00 06/04/22 19:30 06/04/22 20:00 Temperature Pulse Rate 73 92 H 85 Respiratory Rate Blood Pressure Pulse Oximetry 98 97 Oxygen Delivery Method 06/04/22 20:30 06/04/22 20:31 06/04/22 20:31 Temperature Pulse Rate 99 H 93 H Respiratory Rate Blood Pressure 123/56 L Pulse Oximetry 92 95 Oxygen Delivery Method 06/04/22 20:40 06/04/22 20:40 06/04/22 21:00 Temperature Pulse Rate 81 Respiratory Rate Blood Pressure 114/61 99/59 L Pulse Oximetry 98 Oxygen Delivery Method 06/04/22 21:00 06/04/22 21:51 Temperature Pulse Rate 80 98 H Respiratory Rate 14 Blood Pressure 96/86 Pulse Oximetry 96 100 Oxygen Delivery Method Room Air <Silvano Dawson, - Last Filed: 06/04/22 23:08> Orders Ordered: ED Orders 06/04/22 17:08 Complete Blood Count AUTO DIFF Stat Comprehensive Metabolic Panel Stat Lipase Stat 06/04/22 19:12 CT abdomen pelvis w con Stat 06/04/22 21:24 Urine Culture Stat 06/04/22 21:39 Urine Microscopic Stat Discontinued Medications Dexamethasone (Dexamethasone 10 Mg/Ml Vial) 10 mg IV NOW ONE Stop: 06/04/22 17:33 Last Admin: 06/04/22 17:44 Dose: 10 mg Documented By: BT Diphenhydramine HCl (Diphenhydramine 50 Mg/Ml Vial) 25 mg IV NOW ONE Stop: 06/04/22 20:34 Last Admin: 06/04/22 20:59 Dose: Not Given Documented By: ASHLYN Famotidine (Famotidine 20 Mg/2 Ml Vial) 20 mg IV NOW NERISSA Last Admin: 06/04/22 17:44 Dose: 20 mg Documented By: TIFF Haloperidol (Haloperidol 5 Mg/Ml Vial) 5 mg IV NOW ONE Stop: 06/04/22 20:17 Last Admin: 06/04/22 20:20 Dose: 5 mg Documented By: SERENA Sodium Chloride (Normal Saline 0.9%) 1,000 mls @ 1,000 mls/hr IV BOLUS ONE Stop: 06/04/22 18:31 Last Infusion: 06/04/22 20:47 Dose: 0 mls/hr Documented By: Admin: 06/04/22 17:43 Dose: 1,000 mls/hr Documented By: BT POTASSIUM CHLORIDE IN WATER (Potassium Cl 10 Meq/100 Ml Emme) 10 meq in 100 mls @ 100 mls/hr IV Q1H NERISSA Stop: 06/05/22 17:44 Last Admin: 06/04/22 19:17 Dose: Not Given Documented By: Infusion: 06/04/22 19:09 Dose: 0 mls/hr Documented By: Admin: 06/04/22 17:45 Dose: 100 mls/hr Documented By: TIFF Ondansetron HCl (Ondansetron 4 Mg/2 Ml Inj) 4 mg IV NOW PRN PRN Reason: Nausea And Vomiting Last Admin: 06/04/22 17:06 Dose: 4 mg Documented By: CHAUNCEY Ondansetron HCl (Ondansetron 4 Mg/2 Ml Inj) 4 mg IV NOW ONE Stop: 06/04/22 17:33 Last Admin: 06/04/22 17:44 Dose: 4 mg Documented By: TIFF Vital Signs Vital signs: Vital Signs - 8 hr 06/04/22 16:53 06/04/22 17:14 06/04/22 17:16 Temperature 98.5 F Pulse Rate 117 H 120 H Respiratory Rate 28 H Blood Pressure 126/77 Pulse Oximetry 99 98 Oxygen Delivery Method Room Air 06/04/22 17:16 06/04/22 17:30 06/04/22 17:31 Temperature Pulse Rate 109 H 94 H Respiratory Rate 38 H 37 H Blood Pressure 118/72 Pulse Oximetry 98 Oxygen Delivery Method 06/04/22 17:31 06/04/22 18:00 06/04/22 18:30 Temperature Pulse Rate 92 H 99 H 64 Respiratory Rate 34 H 27 H 10 L Blood Pressure Pulse Oximetry Oxygen Delivery Method 06/04/22 19:00 06/04/22 19:30 06/04/22 20:00 Temperature Pulse Rate 73 92 H 85 Respiratory Rate Blood Pressure Pulse Oximetry 98 97 Oxygen Delivery Method 06/04/22 20:30 06/04/22 20:31 06/04/22 20:31 Temperature Pulse Rate 99 H 93 H Respiratory Rate Blood Pressure 123/56 L Pulse Oximetry 92 95 Oxygen Delivery Method 06/04/22 20:40 06/04/22 20:40 06/04/22 21:00 Temperature Pulse Rate 81 Respiratory Rate Blood Pressure 114/61 99/59 L Pulse Oximetry 98 Oxygen Delivery Method 06/04/22 21:00 06/04/22 21:51 Temperature Pulse Rate 80 98 H Respiratory Rate 14 Blood Pressure 96/86 Pulse Oximetry 96 100 Oxygen Delivery Method Room Air MDM - Nausea/Vomiting/Diarrhea <Asuncion Lopez PA-C - Last Filed: 06/04/22 22:18> Lab Data Result diagrams: 06/04/22 17:08 06/04/22 17:08 Labs: Lab Results 06/04/22 06/04/22 06/04/22 Range/Units 17:08 17:08 21:39 WBC 8.9 (4.5-11.0) X10^3/uL RBC 4.29 (4.0-5.2) X10^6/uL Hgb 13.2 (12.0-16.0) g/dL Hct 37.7 (36-46) % MCV 87.8 (80-100) fL MCH 30.8 (26-34) PG MCHC 35.0 (30-36) % RDW 12.5 (11.6-14.8) % Plt Count 499 H (150-400) X10^3/uL Neut % (Auto) 64.4 (50-75) % Lymph % (Auto) 28.9 (25-40) % [place] % (Auto) 5.9 (3-14) % Eos % (Auto) 0.1 L (2-4) % Baso % (Auto) 0.7 (0-2) % Neut # (Auto) 5700 (3320-1034) /uL Lymph # (Auto) 2600 (4689-4903) /uL [place] # (Auto) 500 (0-900) /uL Eos # (Auto) 0 (0-450) /uL Baso # (Auto) 100 (0-100) /uL Sodium 140 (137-145) mmol/L Potassium 3.3 L (3.4-5.1) mmol/L Chloride 107 (98-107) mmol/L Carbon Dioxide 15 L (22-32) mmol/L BUN 9 (7-17) mg/dL Creatinine 0.64 (0.52-1.04) mg/dL Estimated GFR > 60 (>60) mL/min BUN/Creatinine Ratio 14.1 (6-22) Glucose 149 H (70-100) mg/dL Calcium 9.4 (8.4-10.2) mg/dL Total Bilirubin 1.7 H (0.2-1.3) mg/dL AST 32 (14-36) IU/L ALT 28 (<35) IU/L Alkaline Phosphatase 65 (38-126) U/L Total Protein 7.4 (6.3-8.2) g/dL Albumin 4.7 (3.5-5.0) g/dL Globulin 2.7 (1.7-4.1) g/dL Albumin/Globulin Ratio 1.7 (1.0-2.8) Lipase 328 H (23-300) U/L Urine RBC 0-1/hpf D (0-5/HPF) Urine WBC 0-1/hpf (0-5/HPF) Ur Squamous Epith Cells 0-1 /hpf (0-5/HPF) Urine Bacteria None seen (None) Ur Culture Indicated? Cult not indicated Point of Care Testing Test Results Negative Glucose POC 146 Urine Dip Bedside Urine Glucose Negative Bedside Urine Bilirubin - Negative Bedside Urine Ketone - Negative Bedside Urine Occult Blood - Negative Bedside Urine Protein ++ 100 Bedside Urine Urobilinogen - Negative Bedside Urine Nitrite - Negative Bedside Urine Leukocytes - Negative Esterase Imaging Data CT scan - abdomen/pelvis: Radiologist's Impression: Bones:? Unremarkable.? IMPRESSION:? Limited quality visualization through the pelvis as discussed above.? Repeat CT scanning with oral contrast may be warranted depending on the clinical status.? A definite source of reported nausea and vomiting is not seen.? Prior cholecystectomy. ? MDM Narrative Medical decision making narrative: Discussed with patient and family Multiple etiologies for patient's symptoms considered including: Gastritis, duodenitis in setting of gastroparesis although CT scan is negative for perforation, inflammatory picture. Patient's symptoms improved over duration of stay with above-stated therapies. Advised to follow with gastroenterology for her ongoing GI symptoms, also wait. Findings and discharge diagnosis discussed with patient/family followed by verbalization of understanding Return precautions discussed with patient/family whom verbalize understanding. <Silvano Dawson, DO - Last Filed: 06/04/22 23:08> Lab Data Labs: Lab Results 06/04/22 06/04/22 06/04/22 Range/Units 17:08 17:08 21:39 WBC 8.9 (4.5-11.0) X10^3/uL RBC 4.29 (4.0-5.2) X10^6/uL Hgb 13.2 (12.0-16.0) g/dL Hct 37.7 (36-46) % MCV 87.8 (80-100) fL MCH 30.8 (26-34) PG MCHC 35.0 (30-36) % RDW 12.5 (11.6-14.8) % Plt Count 499 H (150-400) X10^3/uL Neut % (Auto) 64.4 (50-75) % Lymph % (Auto) 28.9 (25-40) % [place] % (Auto) 5.9 (3-14) % Eos % (Auto) 0.1 L (2-4) % Baso % (Auto) 0.7 (0-2) % Neut # (Auto) 5700 (3096-6371) /uL Lymph # (Auto) 2600 (1625-9271) /uL [place] # (Auto) 500 (0-900) /uL Eos # (Auto) 0 (0-450) /uL Baso # (Auto) 100 (0-100) /uL Sodium 140 (137-145) mmol/L Potassium 3.3 L (3.4-5.1) mmol/L Chloride 107 (98-107) mmol/L Carbon Dioxide 15 L (22-32) mmol/L BUN 9 (7-17) mg/dL Creatinine 0.64 (0.52-1.04) mg/dL Estimated GFR > 60 (>60) mL/min BUN/Creatinine Ratio 14.1 (6-22) Glucose 149 H (70-100) mg/dL Calcium 9.4 (8.4-10.2) mg/dL Total Bilirubin 1.7 H (0.2-1.3) mg/dL AST 32 (14-36) IU/L ALT 28 (<35) IU/L Alkaline Phosphatase 65 (38-126) U/L Total Protein 7.4 (6.3-8.2) g/dL Albumin 4.7 (3.5-5.0) g/dL Globulin 2.7 (1.7-4.1) g/dL Albumin/Globulin Ratio 1.7 (1.0-2.8) Lipase 328 H (23-300) U/L Urine RBC 0-1/hpf D (0-5/HPF) Urine WBC 0-1/hpf (0-5/HPF) Ur Squamous Epith Cells 0-1 /hpf (0-5/HPF) Urine Bacteria None seen (None) Ur Culture Indicated? Cult not indicated Point of Care Testing Test Results Negative Glucose POC 146 Urine Dip Bedside Urine Glucose Negative Bedside Urine Bilirubin - Negative Bedside Urine Ketone - Negative Bedside Urine Occult Blood - Negative Bedside Urine Protein ++ 100 Bedside Urine Urobilinogen - Negative Bedside Urine Nitrite - Negative Bedside Urine Leukocytes - Negative Esterase Discharge Plan Departure Patient Disposition: Home Clinical Impression: Abdominal pain, Gastroparesis, Nausea & vomiting Instructions: DI for Abdominal Pain-Adult, Nausea and Vomiting-Adult Activity Restrictions/Additional Instructions: *You have been diagnosed with nausea vomiting abdominal pain in setting of gastroparesis *What to do: *Please continue to take your regular medications as directed. New medication prescriptions sent to your pharmacy: Pantoprazole 40 mg 1 capsule daily Monitor your symptoms, follow liquid diet, for several days slowly advance to solids *Please follow up with your primary care provider in 2-3 days, call for an appointment. Let them know you were seen in the Emergency Department and that we ask that you be seen in follow up. We will electronically transmit a record of today's note if your PCP is in our system *If you do not have a primary care provider please contact the [facility] Resource line at [phone]. They will ask some questions about your medical history and help get you set up with a doctor in the community. *Return to Emergency Department if you should have any new, worsening or concerning symptoms, such as [fever greater than 101 F, shaking chills, worsening pain, persistent vomiting or other bothersome symptoms] Prescriptions: New pantoprazole 40 mg tablet,delayed release (DR/EC) 40 mg PO DAILY Qty: 30 0RF No Action metformin 500 mg tablet 250 mg PO DAILY Qty: 30 3RF Rx Instructions: 1/2 tab daily for 2-3 wks and then bid for 2-3 wks levonorgestrel-ethinyl estrad [Jolessa] 0.15 mg-30 mcg (91) tablets,dose pack,3 month 1 tab PO DAILY sertraline [Zoloft] 100 mg tablet 100 mg PO DAILY sertraline [Zoloft] 25 mg tablet 25 mg PO DAILY Linzess 72 mcg capsule 72 mcg PO DAILY gabapentin 100 mg capsule 100 mg PO DAILY Referrals: Romero Betancourt MD [Primary Care Provider] - Visit Report Forms: Patient Portal/API <Silvano Dawson DO - Last Filed: 06/04/22 23:08> Cosign ED Attending Cosignature Attestation: I was immediately available in the department for consultation. This documentation has been reviewed and I agree with assessment and plan. Supervised by Silvano Dawson DO
[2022-06-04] MEDS: HALOPERIDOL 5 MG/ML VIAL IV (20:20)
--- NOTE | 2022-06-04 20:42 | PC.NURSE ---
Addendum entered by Eligio Torres R.N. 06/04/22 20:44: Pt reports improvement of crawling feeling. Original Note: After slow administration of haloperidol pt c/o of feeling like things are crawling on me. Provider aware. Verbal order from Samir for 25mg IV Benadryl given.
[2022-06-04] MEDS: diphenhydrAMINE 50 MG/ML VIAL (20:46)
[2022-06-04 21:50] LABS: Bacteria Urine None Seen; Culture Indicated Urine Cult Not Indicated; RBC Urine 0-1/HPF (0-5/HPF); Squamous Epithelial Cell Urine 0-1 /HPF (0-5/HPF); WBC Urine 0-1/HPF (0-5/HPF)
--- NOTE | 2022-06-05 12:04 | PC.NURSE ---
[facility] called saying that the script had not been received. Script sent to [facility] pharmacy. Pt would like script at [facility], called in verbal.
== END 2022-06-04 21:53 | disposition home or self-care (01) ==
PROVIDERS: Emergency Medicine; Emergency Provider Physician Assistant Medical; PCP Family Medicine
DX: R10.9 Unspecified abdominal pain (principal); K31.84 Gastroparesis; R11.2 Nausea with vomiting, unspecified
CPT/HCPCS: 36415; 74177; 80053; 81003; 81015; 81025; 82962; 83690; 85025; 87086; 96361; 96374; 96375; 96376; 99284; J1100; J1200; J1630; J2405; Q9967

== ENCOUNTER 2024-02-01 20:47 | Emergency (ER) | payer OTHER, SELFPAY ==
[2024-02-01] VITALS (7 sets, daily range): BP systolic 105–120; BP diastolic 63–70; PULSE 66–77; RESP 18–20; TEMP 36.3; O2SAT 98–100; BMI 18.1; BMI 15.2
[2024-02-01 21:22] LABS: Alanine Aminotransferase 51 IU/L (<35); Albumin 4.6 g/dL (3.5-5.0); Albumin Globulin Ratio 1.7 (1.0-2.8); Alkaline Phosphatase 72 U/L (38-126); Aspartate Aminotransferase 30 IU/L (14-36); BUN Creatinine Ratio 10.4 (6-22); Blood Urea Nitrogen 7 mg/dL (7-17); Calcium 9.2 mg/dL (8.4-10.2); Carbon Dioxide 14 mmol/L (22-32); Chloride 108 mmol/L (98-107); Estimated Glomerular Filt Rate > 60 mL/min (>60); Globulin 2.7 g/dL (1.7-4.1); Glucose 195 mg/dL (70-100); HEMOLYSIS < 15 (0-50); Lipase 85 U/L (23-300); Potassium 3.3 mmol/L (3.4-5.1); Sodium 137 mmol/L (137-145); Total Protein 7.3 g/dL (6.3-8.2)
[2024-02-01 21:38] LABS: HCG Quantitative /Beta subunit < 2.39 mIU/mL
[2024-02-01 21:39] LABS: Add Manual Diff / Slide Review NO; Basophils Absolute Auto 0 /uL (0-100); Basophils Percent Auto 0.2 % (0-2); Eosinophils Absolute Auto 0 /uL (0-450); Hematocrit 38.9 % (36-46); Hemoglobin 13.6 g/dL (12.0-16.0); Lymphocytes Absolute Auto 700 /uL (1100-4500); Lymphocytes Percent Auto 4.3 % (25-40); Mean Corpuscular Hemoglobin 30.2 PG (26-34); Mean Corpuscular Volume 86.5 fL (80-100); Monocytes Absolute Auto 400 /uL (0-900); Monocytes Percent Auto 2.8 % (3-14); Neutrophils Absolute Auto 14800 /uL (1500-7000); Neutrophils Percent Auto 92.7 % (50-75); Platelet Count 451 X10^3/uL (150-400); Red Blood Cell Count 4.49 X10^6/uL (4.0-5.2); Red Cell Distribution Width 12.9 % (11.6-14.8); White Blood Cell Count 15.9 X10^3/uL (4.5-11.0)
--- NOTE | 2024-02-01 21:40 | PC.NURSE ---
Pt states that BM have not changed due to medications her BM daily are loose. No blood noted.
[2024-02-01] MEDS: ONDANSETRON 4 MG/2 ML INJ IV (21:41)
--- NOTE | 2024-02-01 23:14 | ED_ITS ---
HPI - Abdominal Pain General Chief Complaint: Abdominal Pain Stated Complaint: nausea, vomiting Time Seen by Provider: 02/01/24 21:09 Source: patient Mode of arrival: Ambulatory History of Present Illness HPI narrative: 23-year-old female with complex abdominal medical history, history of recurrent nausea vomiting, cyclic vomiting had been considered at some point in the past, but she apparently has had suspected intussusception by imaging in the past but no findings at surgery, no bowel resection history, followed most recently by Gastroenterology and vascular surgery at [facility] in [place], 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 Lopez of vascular surgery, also seen by Gastroenterology Dr. Carlisle at [facility]. She is taking an oral laxative regimen. Since 4:00 p.m. today she has had numerous episodes of nonbloody emesis, also dry heave retching, last bowel movement yesterday is unremarkable, no black or red stools. No injury or trauma. No new medications, no cessation of old medications, no dose changes of chronic medications. She does not have pain with urination, no flank pain, no cough or shortness of breath, no fevers or chills, no chest pain. No exposure to persons with similar symptoms. She is tried Zofran ODT that is not helping her nausea or vomiting symptoms, she is intolerant to Reglan. She does admit to regular cannabis use, she states for pain control. She seemed to be aware that cannabis itself can cause nausea and vomiting, states that her care providers are aware of this regimen. Related Data Home Medications Medication Instructions Recorded Confirmed gabapentin 100 mg capsule 100 mg PO DAILY 12/08/21 12/08/21 levonorgestrel 0.15 mg-ethinyl 1 tab PO DAILY 12/08/21 12/08/21 estradiol 30 mcg tablets,3 mos pack(91) (Jolessa) linaclotide 72 mcg capsule 72 mcg PO DAILY 12/08/21 12/08/21 (Linzess) sertraline 100 mg tablet (Zoloft) 100 mg PO DAILY 12/08/21 12/08/21 sertraline 25 mg tablet (Zoloft) 25 mg PO DAILY 12/08/21 12/08/21 Previous Rx's Medication Instructions Recorded metformin 500 mg tablet 250 mg (1/2 x 500 mg) PO DAILY #30 02/17/22 tabs pantoprazole 40 mg tablet,delayed 40 mg PO DAILY #30 tabs 06/04/22 release ondansetron 4 mg disintegrating 4 mg PO Q6H PRN nausea and 02/02/24 tablet vomiting #7 tabs potassium chloride 20 mEq 20 meq PO DAILY 5 days #5 tabs 02/02/24 tablet,extended release(part/cryst) (Klor-Con M) Allergies Allergy/AdvReac Type Severity Reaction Status Date / Time metoclopramide [From Reglan] AdvReac Anxiety Verified 06/04/22 17:25 Review of Systems Review of Systems Narrative: per HPI Patient History Medical History (Updated 02/02/24 @ 01:38 by Ari Walls MD) Painful menstrual periods (~2019) Ovarian cyst Gastroparesis (~2019) History of Meckel's diverticulum Gilbert disease Migraine Anxiety (~2017) Biliary dyskinesia Chronic abdominal pain Surgical History (Updated 12/25/21 @ 20:32 by Angie Billings) Anesthesia History of abdominal surgery (~2018) History of appendectomy (~2020) S/P laparoscopic surgery (~2018) Hx of cholecystectomy (06/25/18) History of arthroscopic knee surgery Family History (Updated 12/25/21 @ 20:33 by Angie Billings) Mother Healthy adult Father Healthy adult Sister Healthy adult Sister Healthy adult Sister Healthy adult Grandmother Colon cancer Diabetes mellitus Social History household members: significant other and other occupational status: student Smoking Status: Never smoker alcohol intake: never substance use type: marijuana Smoking Status: Never smoker alcohol intake frequency: a few times a month Substance Use Type: marijuana Exam Narrative Exam Narrative: GENERAL: Well-developed patient, in mild distress. HEAD: Atraumatic. Normocephalic. EYES: Pupils equal round and reactive. Extraocular motions intact. No scleral icterus. No injection or drainage. ENT: Nose without bleeding, purulent drainage. Throat without erythema, tonsillar hypertrophy or exudate. Airway patent. NECK: Trachea midline. Non tender CARDIOVASCULAR: Regular rate and rhythm without murmurs, gallops, or rubs. RESPIRATORY: Clear to auscultation. Breath sounds equal bilaterally. No wheezes, rales, or rhonchi. GASTROINTESTINAL: Abdomen soft, quite thin, non-tender, nondistended. Diffuse mild tenderness upper and lower and right and left quadrants, no ventral hernia obvious. EXTREMITIES: No edema or joint tenderness. BACK: Nontender without deformity or crepitance. No flank tenderness. NEURO: AOx3. Motor nonfocal SKIN: No rash or erythema of visible areas Initial Vital Signs Initial Vital Signs: Vital Signs Temperature 97.4 F L 02/01/24 20:55 Pulse Rate 77 02/01/24 20:55 Respiratory Rate 20 02/01/24 20:55 Blood Pressure 109/63 02/01/24 20:55 Pulse Oximetry 98 02/01/24 20:55 Oxygen Delivery Method Room Air 02/01/24 20:55 Course Orders Ordered: ED Orders 02/01/24 21:02 Complete Blood Count AUTO DIFF Stat Comprehensive Metabolic Panel Stat HCG Quantitative /Beta subunit Stat Lipase Stat Magnesium Stat 02/01/24 23:34 CT abdomen pelvis w con Stat 02/02/24 03:15 Potassium Stat Discontinued Medications Diphenhydramine HCl (Diphenhydramine 50 Mg/Ml Vial) 25 mg IV NOW ONE Stop: 02/01/24 23:38 Last Admin: 02/01/24 23:49 Dose: 25 mg Documented By: MAGNOLIA Haloperidol (Haloperidol 5 Mg/Ml Vial) 5 mg IV NOW ONE Stop: 02/01/24 23:38 Last Admin: 02/01/24 23:49 Dose: 5 mg Documented By: MAGNOLIA Hydromorphone HCl (Hydromorphone 0.5 Mg Inj) 0.5 mg IV NOW ONE Stop: 02/01/24 23:38 Last Admin: 02/01/24 23:50 Dose: 0.5 mg Documented By: MAGNOLIA POTASSIUM CHLORIDE IN WATER (Potassium Cl 10 Meq/100 Ml Meme) 10 meq in 100 mls @ 100 mls/hr IV Q1H NERISSA Stop: 02/02/24 01:29 Last Infusion: 02/02/24 03:17 Dose: Infused Documented By: Infusion: 02/02/24 01:33 Dose: 50 mls/hr Documented By: Admin: 02/02/24 01:17 Dose: 100 mls/hr Documented By: Infusion: 02/02/24 01:16 Dose: Infused Documented By: Admin: 02/01/24 23:32 Dose: 100 mls/hr Documented By: Sodium Chloride (Normal Saline 0.9%) 1,000 mls @ 1,000 mls/hr IV BOLUS ONE Stop: 02/02/24 00:36 Last Infusion: 02/02/24 01:31 Dose: Infused Documented By: Admin: 02/01/24 23:51 Dose: 1,000 mls/hr Documented By: MAGNOLIA Ondansetron HCl (Ondansetron 4 Mg/2 Ml Inj) 4 mg IV NOW PRN PRN Reason: Nausea And Vomiting Last Admin: 02/01/24 21:41 Dose: 4 mg Documented By: Ondansetron HCl (Ondansetron 4 Mg Odt) 4 mg PO NOW PRN PRN Reason: Nausea And Vomiting Pantoprazole Sodium (Pantoprazole 40 Mg Vial) 40 mg IV NOW ONE Stop: 02/01/24 23:37 Last Admin: 02/01/24 23:50 Dose: 40 mg Documented By: MAGNOLIA Potassium Chloride (Potassium Chloride 20 Meq/15 Ml Udc) 40 meq PO NOW ONE Stop: 02/01/24 23:19 Last Admin: 02/02/24 01:21 Dose: Not Given Documented By: Potassium Chloride (Potassium Chloride 20 Meq Tab) 40 meq PO NOW ONE Stop: 02/02/24 01:24 Last Admin: 02/02/24 01:27 Dose: 40 meq Documented By: Vital Signs Vital signs: Vital Signs - 8 hr 02/01/24 20:55 02/01/24 21:38 02/01/24 21:39 Temperature 97.4 F L Pulse Rate 77 72 67 Respiratory Rate 20 Blood Pressure 109/63 Pulse Oximetry 98 99 100 Oxygen Delivery Method Room Air 02/01/24 21:39 02/01/24 22:00 02/01/24 22:00 Temperature Pulse Rate 66 Respiratory Rate 18 Blood Pressure 105/64 120/65 Pulse Oximetry 99 Oxygen Delivery Method 02/01/24 22:30 02/01/24 22:30 02/01/24 23:00 Temperature Pulse Rate 77 70 Respiratory Rate Blood Pressure 111/67 Pulse Oximetry 100 99 Oxygen Delivery Method 02/01/24 23:00 02/01/24 23:30 02/01/24 23:30 Temperature Pulse Rate 72 Respiratory Rate 18 18 Blood Pressure 113/70 109/65 Pulse Oximetry 99 Oxygen Delivery Method 02/02/24 00:05 02/02/24 00:07 02/02/24 00:07 Temperature Pulse Rate 76 70 Respiratory Rate Blood Pressure 104/60 Pulse Oximetry 95 97 Oxygen Delivery Method 02/02/24 00:30 02/02/24 00:30 02/02/24 01:00 Temperature Pulse Rate 76 88 Respiratory Rate Blood Pressure 110/66 Pulse Oximetry 98 98 Oxygen Delivery Method Room Air 02/02/24 01:00 02/02/24 01:30 02/02/24 01:30 Temperature Pulse Rate 81 Respiratory Rate Blood Pressure 109/66 118/74 Pulse Oximetry 97 Oxygen Delivery Method Room Air 02/02/24 02:00 02/02/24 02:00 02/02/24 02:30 Temperature Pulse Rate 77 80 Respiratory Rate 18 Blood Pressure 120/62 Pulse Oximetry 97 95 Oxygen Delivery Method 02/02/24 02:30 02/02/24 03:00 02/02/24 03:00 Temperature Pulse Rate 89 Respiratory Rate 18 Blood Pressure 115/67 118/75 Pulse Oximetry 95 Oxygen Delivery Method MDM - Abdominal Pain Lab Data Attestation: I reviewed the patient's lab results. 02/01/24 21:02 02/02/24 03:15 Labs: Lab Results 02/01/24 02/02/24 Range/Units 21:02 03:15 WBC 15.9 H (4.5-11.0) X10^3/uL RBC 4.49 (4.0-5.2) X10^6/uL Hgb 13.6 (12.0-16.0) g/dL Hct 38.9 (36-46) % MCV 86.5 (80-100) fL MCH 30.2 (26-34) PG MCHC 35.0 (30-36) % RDW 12.9 (11.6-14.8) % Plt Count 451 H (150-400) X10^3/uL Neut % (Auto) 92.7 H (50-75) % Lymph % (Auto) 4.3 L (25-40) % [place] % (Auto) 2.8 L (3-14) % Eos % (Auto) 0.0 L (2-4) % Baso % (Auto) 0.2 (0-2) % Neut # (Auto) 00782 H (7973-1697) /uL Lymph # (Auto) 700 L (6417-4489) /uL [place] # (Auto) 400 (0-900) /uL Eos # (Auto) 0 (0-450) /uL Baso # (Auto) 0 (0-100) /uL Sodium 137 (137-145) mmol/L Potassium 3.3 L 4.6 D (3.4-5.1) mmol/L Chloride 108 H (98-107) mmol/L Carbon Dioxide 14 L (22-32) mmol/L BUN 7 (7-17) mg/dL Creatinine 0.67 (0.52-1.04) mg/dL Estimated GFR > 60 (>60) mL/min BUN/Creatinine Ratio 10.4 (6-22) Glucose 195 H (70-100) mg/dL Calcium 9.2 (8.4-10.2) mg/dL Magnesium 1.9 (1.6-2.3) mg/dL Total Bilirubin 2.0 H (0.2-1.3) mg/dL AST 30 (14-36) IU/L ALT 51 H (<35) IU/L Alkaline Phosphatase 72 (38-126) U/L Total Protein 7.3 (6.3-8.2) g/dL Albumin 4.6 (3.5-5.0) g/dL Globulin 2.7 (1.7-4.1) g/dL Albumin/Globulin Ratio 1.7 (1.0-2.8) Lipase 85 (23-300) U/L HCG, Quant < 2.39 mIU/mL Imaging Data CT scan - abdomen/pelvis: Radiologist's Impression: [address] [address] [address] Scan Report Signed Patient: Vanessa Ortiz MR#: [id number] : 2000 Acct:[id number] Age/Sex: 23 / F Date of Service: 02/01/24 Loc: ED Accession Number: [id number] Procedure: CT abdomen pelvis w con Ordering Provider: Ari Walls MD PROCEDURE: CT ABDOMEN PELVIS W CON INDICATIONS: abd pain/N/V TECHNIQUE: After the administration of intravenous contrast, axial sections acquired from the lung bases to the pubic symphysis. Coronal and sagittal reformats were performed. For radiation dose reduction, the following was used: automated exposure control, adjustment of mA and/or kV according to patient size. COMPARISON: [facility], CT, CT ABDOMEN PELVIS W CON, 06/20/2020, 12:07. [facility], CT, CT ABDOMEN PELVIS W CON, 06/04/2022, 19:41. FINDINGS: Image quality: Diagnostic. Lower Chest: No significant findings. ABDOMEN: Liver: No solid mass. Gallbladder: Removed. Biliary ducts: No biliary dilation. Pancreas: No ductal dilation. Spleen: Size is within normal limits. Adrenal Glands: No adrenal nodules. Kidneys and Ureters: No hydronephrosis. No solid mass. No complex renal cystic lesion which requires follow up. Stomach and Bowel: Moderate fluid is seen within the stomach. No dilated loops of small bowel are seen. The colon is relatively decompressed. Peritoneum: No abnormal intraperitoneal fluid. No free air. Ventral Wall: No significant ventral hernia. Abdominal Nodes: No retroperitoneal or mesenteric adenopathy by size criteria. Vessels: Aorta and inferior vena cava are normal in size. PELVIS: Pelvic Organs: The uterus appears normal for age. No adnexal masses are seen. There is a trace of free pelvic fluid seen. Bladder: No bladder wall thickening, accounting for underdistention. Pelvic Nodes: No enlarged lymph nodes. Miscellaneous: No inguinal hernias are seen. Bones: No aggressive osseous abnormality. IMPRESSION: The stomach is moderately distended with fluid. No dilated loops of small bowel can be seen. The colon is relatively decompressed. A trace of free pelvic fluid is seen, which is likely within physiologic limits for a woman of this age. Additional findings: Cholecystectomy Dictated by: Jama Marcus M.D. on 02/01/2024 at 23:39 Approved by: Jama Marcus M.D. on 02/01/2024 at 23:43 MDM Narrative Medical decision making narrative: 23-year-old with complex history recurrent vomiting, prior suspected intussusception, followed by [facility] gastroenterology, persistent vomiting today, potassium 3.3 noted, IV and oral potassium initiated, IV fluid bolus started, serum hCG negative noted, urinalysis still pending. DDx consider recurrence of intussusception, gastritis, DAKOTAH, esophagitis, peptic ulcer, bowel obstruction, colitis, diverticulitis, urinary tract infection, exacerbation of cyclic vomiting syndrome in context of cannabis use for chronic pain, other. Patient believes she received a 2nd medication for nausea and previous visit a year ago that helped, can not recall the name of it. She also reports regular cannabis use, that she states is for chronic pain, and she states that this is known to her other medical providers. Prior visit here patient was treated with haloperidol as well as Protonix and Benadryl. IV Haldol 5 mg with Benadryl 25 mg ordered, along with Protonix bolus. CT abdomen and pelvis study ordered. CT abdomen and pelvis showed no acute changes. Printed copy of the report and to patient. Symptoms improved, oral potassium additionally taken. She had not want to stay for repeat potassium draw. Home with family. Encouraged to follow up with her [facility] rehab specialist. Return precautions discussed. Prescription for Zofran ODT to use if needed for nausea control Critical Care Time Critical Care Time Critical Care Time: Yes Total Critical Care Time: 31 Attestation: The high probability of a clinically significant, sudden or life threatening deterioration of the [gastrointestinal, genitourinary, abdominopelvic] system(s) required my full and direct attention, intervention and personal management. The aggregate critical care time was [31] minutes. This time is in addition to time spent performing reported procedures but includes the following: [x] Data Review and interpretation [x] Patient assessment and monitoring of vital signs [x] Documentation [x] Medication orders and management Discharge Plan Departure Patient Disposition: Home Clinical Impression: Abdominal pain, Hypokalemia, Nausea and vomiting Activity Restrictions/Additional Instructions: History of recurrent abdominal problems, followed by [facility] gastroenterology, regular cannabis use for chronic pain, recurrent episodes of nausea and vomiting. Abdominal pain as well. Afebrile on triage vitals, unremarkable vitals, diffuse mild tenderness without distention. Low potassium measured on blood testing, IV potassium, oral potassium given. Consider taking potassium supplements next couple of days, prescription sent to your pharmacy. test negative. CT abdomen and pelvis testing tonight showed no acute changes, per radiologist's report. Consider using ODT formulation oral dissolvable Zofran as needed for nausea and vomiting control. Continue pantoprazole antacid medication. Follow up with your rehab specialist in [place] as planned. Return to this/nearest emergency department for any change worsening symptoms or any concerns prior Prescriptions: New potassium chloride [Klor-Con M20] 20 mEq tablet,ER particles/crystals 20 meq PO DAILY 5 Days Qty: 5 0RF ondansetron 4 mg tablet,disintegrating 4 mg PO Q6H PRN (Reason: nausea and vomiting) Qty: 7 0RF No Action metformin 500 mg tablet 250 mg PO DAILY Qty: 30 3RF Rx Instructions: 1/2 tab daily for 2-3 wks and then bid for 2-3 wks levonorgestrel-ethinyl estrad [Jolessa] 0.15 mg-30 mcg (91) tablets,dose pack,3 month 1 tab PO DAILY sertraline [Zoloft] 100 mg tablet 100 mg PO DAILY sertraline [Zoloft] 25 mg tablet 25 mg PO DAILY Linzess 72 mcg capsule 72 mcg PO DAILY gabapentin 100 mg capsule 100 mg PO DAILY pantoprazole 40 mg tablet,delayed release (DR/EC) 40 mg PO DAILY Qty: 30 0RF Referrals: Romero Betancourt MD [Primary Care Provider] - Stand Alone Forms: Patient Portal/API
[2024-02-01] MEDS: POTASSIUM CHLORIDE IN WATER 10 MEQ/100 ML PIGGYBACK 100 MEQ IV (23:32)
--- NOTE | 2024-02-01 23:34 | DI.CT.S_ITS ---
PROCEDURE: CT ABDOMEN PELVIS W CON INDICATIONS: abd pain/N/V TECHNIQUE: After the administration of intravenous contrast, axial sections acquired from the lung bases to the pubic symphysis. Coronal and sagittal reformats were performed. For radiation dose reduction, the following was used: automated exposure control, adjustment of mA and/or kV according to patient size. COMPARISON: [facility], CT, CT ABDOMEN PELVIS W CON, 06/20/2020, 12:07. [facility], CT, CT ABDOMEN PELVIS W CON, 06/04/2022, 19:41. FINDINGS: Image quality: Diagnostic. Lower Chest: No significant findings. ABDOMEN: Liver: No solid mass. Gallbladder: Removed. Biliary ducts: No biliary dilation. Pancreas: No ductal dilation. Spleen: Size is within normal limits. Adrenal Glands: No adrenal nodules. Kidneys and Ureters: No hydronephrosis. No solid mass. No complex renal cystic lesion which requires follow up. Stomach and Bowel: Moderate fluid is seen within the stomach. No dilated loops of small bowel are seen. The colon is relatively decompressed. Peritoneum: No abnormal intraperitoneal fluid. No free air. Ventral Wall: No significant ventral hernia. Abdominal Nodes: No retroperitoneal or mesenteric adenopathy by size criteria. Vessels: Aorta and inferior vena cava are normal in size. PELVIS: Pelvic Organs: The uterus appears normal for age. No adnexal masses are seen. There is a trace of free pelvic fluid seen. Bladder: No bladder wall thickening, accounting for underdistention. Pelvic Nodes: No enlarged lymph nodes. Miscellaneous: No inguinal hernias are seen. Bones: No aggressive osseous abnormality. IMPRESSION: The stomach is moderately distended with fluid. No dilated loops of small bowel can be seen. The colon is relatively decompressed. A trace of free pelvic fluid is seen, which is likely within physiologic limits for a woman of this age. Additional findings: Cholecystectomy Dictated by: Jama Marcus M.D. on 02/01/2024 at 23:39 Approved by: Jama Marcus M.D. on 02/01/2024 at 23:43
[2024-02-01 23:44] LABS: Magnesium 1.9 mg/dL (1.6-2.3)
[2024-02-01] MEDS: HALOPERIDOL 5 MG/ML VIAL IV (23:49)
[2024-02-01] MEDS: diphenhydrAMINE 50 MG/ML VIAL 25 MG IV (23:49)
[2024-02-01] MEDS: PANTOPRAZOLE 40 MG VIAL IV (23:50)
[2024-02-01] MEDS: HYDROMORPHONE 0.5 MG INJ IV (23:50)
[2024-02-01] MEDS: SODIUM CHLORIDE 0.9% 1,000 ML 1000 ML IV (23:51)
[2024-02-02] VITALS (8 sets, daily range): BP systolic 104–120; BP diastolic 60–75; PULSE 70–89; RESP 18; O2SAT 95–98
[2024-02-02] MEDS: POTASSIUM CHLORIDE IN WATER 10 MEQ/100 ML PIGGYBACK 100 MEQ IV (01:17)
[2024-02-02] MEDS: POTASSIUM CHLORIDE 20 MEQ TAB 40 MEQ PO (01:27)
[2024-02-02 03:32] LABS: HEMOLYSIS < 15 (0-50); Potassium 4.6 mmol/L (3.4-5.1)
== END 2024-02-02 03:19 | disposition home or self-care (01) ==
PROVIDERS: Emergency Provider Emergency Medicine; PCP Family Medicine
DX: R10.9 Unspecified abdominal pain (principal); E87.6 Hypokalemia; R11.2 Nausea with vomiting, unspecified; R79.89 Other specified abnormal findings of blood chemistry; F12.90 Cannabis use, unspecified, uncomplicated
CPT/HCPCS: 36415; 74177; 80053; 83690; 83735; 84132; 84702; 85025; 96365; 96366; 96375; 99284; J1170; J1200; J1630; J2405; J2470; Q9967

== ENCOUNTER 2024-06-18 07:23 | Emergency (ER) | payer OTHER, SELFPAY ==
[2024-02-01 20:47] VITALS: BMI 18.1
[2024-06-18] VITALS (10 sets, daily range): BP systolic 148–150; BP diastolic 89–98; PULSE 69–107; RESP 20; TEMP 37; O2SAT 100; BMI 15.5
--- NOTE | 2024-06-18 07:32 | ED.ABDPAIN ---
HPI - Abdominal Pain General Chief Complaint: Abdominal Pain Stated Complaint: abd pain Time Seen by Provider: 06/18/24 07:24 History of Present Illness HPI narrative: 24-year-old female with acute onset middle abdominal pain at 6:00 a.m. this morning, no trauma or new activities, history of ovarian cysts, history of intussusception 2017, history of cholecystectomy and appendectomy, and 3 months ago had left renal vein transposition surgery treated at [facility]. She had been feeling well up until yesterday, woke this morning with a sharp middle pain. No black or red stools, last bowel movement was yesterday, feels that she is passing some gas. No history of kidney stones recalled. No painful urination or frequency of urination. Denies cough or shortness of breath. No back or flank area discomfort, says this feels different than her renal vein related discomfort. Related Data Home Medications Medication Instructions Recorded Confirmed gabapentin 100 mg capsule 100 mg PO DAILY 12/08/21 12/08/21 levonorgestrel 0.15 mg-ethinyl 1 tab PO DAILY 12/08/21 12/08/21 estradiol 30 mcg tablets,3 mos pack(91) (Jolessa) linaclotide 72 mcg capsule 72 mcg PO DAILY 12/08/21 12/08/21 (Linzess) sertraline 100 mg tablet (Zoloft) 100 mg PO DAILY 12/08/21 12/08/21 sertraline 25 mg tablet (Zoloft) 25 mg PO DAILY 12/08/21 12/08/21 Previous Rx's Medication Instructions Recorded metformin 500 mg tablet 250 mg (1/2 x 500 mg) PO DAILY #30 02/17/22 tabs pantoprazole 40 mg tablet,delayed 40 mg PO DAILY #30 tabs 06/04/22 release ondansetron 4 mg disintegrating 4 mg PO Q6H PRN nausea and 02/02/24 tablet vomiting #7 tabs dicyclomine 20 mg tablet 20 mg PO TID #30 tabs 06/18/24 Allergies Allergy/AdvReac Type Severity Reaction Status Date / Time metoclopramide [From Reglan] AdvReac Anxiety Verified 06/04/22 17:25 Patient History Medical History (Updated 06/18/24 @ 11:00 by Ari Walls MD) Painful menstrual periods (~2019) Ovarian cyst Gastroparesis (~2019) History of Meckel's diverticulum Gilbert disease Migraine Anxiety (~2017) Biliary dyskinesia Chronic abdominal pain Surgical History (Updated 12/25/21 @ 20:32 by Angie Billings) Anesthesia History of abdominal surgery (~2018) History of appendectomy (~2020) S/P laparoscopic surgery (~2018) Hx of cholecystectomy (06/25/18) History of arthroscopic knee surgery Family History (Updated 12/25/21 @ 20:33 by Angie Billings) Mother Healthy adult Father Healthy adult Sister Healthy adult Sister Healthy adult Sister Healthy adult Grandmother Colon cancer Diabetes mellitus Social History household members: significant other and other occupational status: student Smoking Status: Never smoker alcohol intake: never substance use type: marijuana Smoking Status: Never smoker alcohol intake frequency: a few times a month Exam Narrative Exam Narrative: GENERAL: Well-developed patient, in mild distress. HEAD: Atraumatic. Normocephalic. EYES: Pupils equal round and reactive. Extraocular motions intact. No scleral icterus. No injection or drainage. ENT: Nose without bleeding, purulent drainage. Throat without erythema, tonsillar hypertrophy or exudate. Airway patent. NECK: Trachea midline. Non tender CARDIOVASCULAR: Regular rate and rhythm without murmurs, gallops, or rubs. RESPIRATORY: Clear to auscultation. Breath sounds equal bilaterally. No wheezes, rales, or rhonchi. GASTROINTESTINAL: Abdomen soft, non-tender, nondistended. EXTREMITIES: No edema or joint tenderness. BACK: Nontender without deformity or crepitance. No flank tenderness. NEURO: AOx3. Motor functions grossly nonfocal SKIN: No rash or erythema of visible areas Initial Vital Signs Initial Vital Signs: Vital Signs Pulse Rate 92 H 06/18/24 07:32 Pulse Oximetry 100 06/18/24 07:32 Course Orders Ordered: Discontinued Medications Dicyclomine HCl (Dicyclomine 10 Mg Capsule) 20 mg PO NOW ONE Stop: 06/18/24 09:41 Last Admin: 06/18/24 09:54 Dose: 20 mg Documented By: NATANAEL Diphenhydramine HCl (Diphenhydramine 50 Mg/Ml Vial) 50 mg IV NOW ONE Stop: 06/18/24 08:28 Last Admin: 06/18/24 08:32 Dose: 50 mg Documented By: NATANAEL Hydromorphone HCl (Hydromorphone 2 Mg Inj) 0.5 mg IV NOW ONE Stop: 06/18/24 08:01 Last Admin: 06/18/24 07:55 Dose: 0.5 mg Documented By: NATANAEL Hydromorphone HCl (Hydromorphone 2 Mg Inj) 0.5 mg IV NOW ONE Stop: 06/18/24 08:31 Last Admin: 06/18/24 08:32 Dose: 0.5 mg Documented By: NATANAEL Sodium Chloride (Normal Saline 0.9%) 1,000 mls @ 1,000 mls/hr IV BOLUS ONE Stop: 06/18/24 08:46 Last Infusion: 06/18/24 10:39 Dose: Infused Documented By: Admin: 06/18/24 07:54 Dose: 1,000 mls/hr Documented By: NATANAEL Morphine Sulfate (Morphine 4 Mg/Ml Inj) 4 mg IV NOW ONE Stop: 06/18/24 09:36 Last Admin: 06/18/24 09:38 Dose: 4 mg Documented By: NATANAEL Ondansetron HCl (Ondansetron 4 Mg/2 Ml Inj) 4 mg IV NOW ONE Stop: 06/18/24 07:34 Last Admin: 06/18/24 07:55 Dose: 4 mg Documented By: NATANAEL Prochlorperazine (Prochlorperazine 10 Mg/2 Ml Vial) 5 mg IV NOW ONE Stop: 06/18/24 08:28 Last Admin: 06/18/24 08:32 Dose: 5 mg Documented By: NATANAEL Vital Signs Vital signs: Vital Signs - 8 hr 06/18/24 10:30 06/18/24 11:07 Temperature 98.6 F Pulse Rate 76 100 H Respiratory Rate 20 Blood Pressure 149/89 H Pulse Oximetry 100 100 Oxygen Delivery Method Room Air MDM - Abdominal Pain Lab Data Attestation: I reviewed the patient's lab results. Lab results narrative: White blood cell count 7500, hemoglobin 14, platelets adequate. Basic metabolic panel unremarkable, normal renal function. HCG noted negative. Liver functions and lipase normal. 06/18/24 07:30 06/18/24 07:30 Labs: Lab Results 06/18/24 Range/Units 07:30 WBC 7.5 (4.5-11.0) X10^3/uL RBC 4.85 (4.0-5.2) X10^6/uL Hgb 14.0 (12.0-16.0) g/dL Hct 41.6 (36-46) % MCV 85.8 (80-100) fL MCH 28.8 (26-34) PG MCHC 33.6 (30-36) % RDW 13.8 (11.6-14.8) % Plt Count 392 (150-400) X10^3/uL Neut % (Auto) 58.7 (50-75) % Lymph % (Auto) 31.2 (25-40) % [place] % (Auto) 7.9 (3-14) % Eos % (Auto) 1.4 L (2-4) % Baso % (Auto) 0.8 (0-2) % Neut # (Auto) 4400 (9516-7012) /uL Lymph # (Auto) 2300 (2495-4080) /uL [place] # (Auto) 600 (0-900) /uL Eos # (Auto) 100 (0-450) /uL Baso # (Auto) 100 (0-100) /uL Sodium 138 (137-145) mmol/L Potassium 3.9 (3.4-5.1) mmol/L Chloride 108 H (98-107) mmol/L Carbon Dioxide 23 (22-32) mmol/L BUN 5 L (7-17) mg/dL Creatinine 0.81 (0.52-1.04) mg/dL Estimated GFR > 60 (>60) mL/min BUN/Creatinine Ratio 6.2 (6-22) Glucose 129 H (70-100) mg/dL Calcium 9.0 (8.4-10.2) mg/dL Total Bilirubin 0.9 (0.2-1.3) mg/dL AST 27 (14-36) IU/L ALT 19 (<35) IU/L Alkaline Phosphatase 93 (38-126) U/L Total Protein 7.2 (6.3-8.2) g/dL Albumin 4.6 (3.5-5.0) g/dL Globulin 2.6 (1.7-4.1) g/dL Albumin/Globulin Ratio 1.8 (1.0-2.8) Lipase 140 (23-300) U/L HCG, Quant < 2.39 mIU/mL Imaging Data CT scan - abdomen/pelvis: Radiologist's Impression: Close Abdomen/Pelvis CT (Signed) Heber Mauricio - 06/18/24 Launch?Image [address] [address] [address] Scan Report Signed Patient: Vanessa Ortiz MR#: [id number] : 2000 Acct:[id number] Age/Sex: 24 / F Date of Service: 06/18/24 Loc: ED Accession Number: [id number] Procedure: CT abdomen pelvis w con Ordering Provider: Ari Walls MD PROCEDURE: CT ABDOMEN PELVIS W CON INDICATIONS: abd pain TECHNIQUE: After the administration of intravenous contrast, axial sections acquired from the lung bases to the pubic symphysis. Coronal and sagittal reformats were performed. For radiation dose reduction, the following was used: automated exposure control, adjustment of mA and/or kV according to patient size. COMPARISON: [facility], CT, CT ABDOMEN PELVIS W CON, 02/01/2024, 23:42. FINDINGS: Image quality: Diagnostic. Lower Chest: No significant findings. ABDOMEN: Liver: No solid mass. Gallbladder: Gallbladder is surgically absent. Biliary ducts: No biliary dilation. Pancreas: No ductal dilation. Spleen: Size is within normal limits. Adrenal Glands: No adrenal nodules. Kidneys and Ureters: No hydronephrosis. No solid mass. No complex renal cystic lesion which requires follow up. Stomach and Bowel: Nonspecific fluid distension of distal small bowel loops is seen without focal zone of transition or air-fluid levels. Mele-mm-kongojng fecal stasis in ascending colon is seen. No bowel obstruction. No abscess collection. No abnormal bowel wall thickening. Peritoneum: No abnormal intraperitoneal fluid. No free air. Ventral Wall: No significant ventral hernia. Abdominal Nodes: No retroperitoneal or mesenteric adenopathy by size criteria. Vessels: Aorta and inferior vena cava are normal in size. Postsurgical changes from prior surgical repositioning of the left renal vein is again seen unchanged from prior studies. PELVIS: Pelvic Organs: Unremarkable. Bladder: No bladder wall thickening, accounting for underdistention. Pelvic Nodes: No enlarged lymph nodes. Miscellaneous: No inguinal hernias are seen. Bones: No aggressive osseous abnormality. IMPRESSION: 1. Nonspecific mild fluid distension of mid to distal small bowel loops with wall enhancement which can be seen associated with low-grade enteritis. No bowel obstruction. No abnormal bowel wall thickening. No free fluid or free air. 2. Postsurgical changes from prior of left renal vein repositioning with vascular graft in place. No aortic aneurysm or dissection. 3. Prior cholecystectomy. Dictated by: Heber Mauricio M.D. on 06/18/2024 at 9:16 Approved by: Heber Mauricio M.D. on 06/18/2024 at 9:22 [facility] Narrative Medical decision making narrative: 24-year-old female with extensive abdominopelvic history, reports prior intussusception 2018, remote cholecystectomy, remote appendectomy, prior ovarian cysts, chart history gastroparesis, chart history PID, more recent 3 months ago [facility] transposition of the left renal vein surgery, now with sudden onset central periumbilical abdominal pain 1.5 hours ago, atraumatic, nausea without emesis, having bowel movement yesterday, passing gas, afebrile, sirs screen negative. Some tenderness central abdomen, nondistended, quite thin appearance, well-healed scars without obvious ventral incisional hernia. Uncomfortable appearing, requests pain medications. IV Dilaudid/Zofran, keep NPO, labs pending, anticipate CT abdominopelvic imaging with IV contrast. HCG pending. Hx reglan allergy noted. Followed by support architect Siobhan Carlisle at [facility] in [place]. HCG negative, renal function normal. CT abdomen and pelvis with IV contrast ordered. Still having pain, still nauseated. Repeat Dilaudid dose, prior Zofran doses, history of Reglan allergy, will add Compazine/Benadryl. CT abdomen and pelvis shows no obstructive changes, no perforation, has some fluid in the small bowel, low-grade enteritis suspected, postoperative change from vein surgery and cholecystectomy also noted. See radiology report. Trial of oral dicyclomine antispasmodic. Patient still having some discomfort, willing to try the antispasmodic, to see if she feels comfortable enough to try home therapy, versus admission. She feels better after dicyclomine and previous IV therapies and fluids. She would like to go home. Prescription for oral dicyclomine sent to her pharmacy. Home with family. Return precautions discussed Discharge Plan Departure Patient Disposition: Home Clinical Impression: Abdominal pain, Enteritis Activity Restrictions/Additional Instructions: Complex history of abdominopelvic problems, including intussusception in the past, gastroparesis per problem list, now with acute onset abdominal discomfort and nausea without vomiting or diarrhea. No fever on triage. Abdomen flat nondistended. Screening labs unremarkable. CT scan abdomen and pelvis showed fluid-filled loops of small bowel that do not at this time look obstructed, no perforations or abscess formation or other acute changes noted. Imaging most consistent with enteritis, usually viral in etiology, usually no antibiotics are helpful for this condition, treatment is hydration and symptomatic treatment. You had improvement in your nausea with IV therapies, and pain control medications. Oral Bentyl/dicyclomine was given as an antispasmodic which seemed to be helpful, further prescription of this sent to your pharmacy to use the next few days if you find this helpful as well. Drink plenty of fluids. Recheck symptoms with your regular doctor if not improved in the next couple of days. Return earlier to this/nearest emergency department for any change worsening symptoms or any concerns prior Prescriptions: New dicyclomine 20 mg tablet 20 mg PO TID Qty: 30 0RF No Action metformin 500 mg tablet 250 mg PO DAILY Qty: 30 3RF Rx Instructions: 1/2 tab daily for 2-3 wks and then bid for 2-3 wks levonorgestrel-ethinyl estrad [Jolessa] 0.15 mg-30 mcg (91) tablets,dose pack,3 month 1 tab PO DAILY sertraline [Zoloft] 100 mg tablet 100 mg PO DAILY sertraline [Zoloft] 25 mg tablet 25 mg PO DAILY Linzess 72 mcg capsule 72 mcg PO DAILY gabapentin 100 mg capsule 100 mg PO DAILY pantoprazole 40 mg tablet,delayed release (DR/EC) 40 mg PO DAILY Qty: 30 0RF ondansetron 4 mg tablet,disintegrating 4 mg PO Q6H PRN (Reason: nausea and vomiting) Qty: 7 0RF Referrals: Romero Betancourt MD [Primary Care Provider] - Stand Alone Forms: Patient Portal/API/Survey
[2024-06-18 07:45] LABS: Add Manual Diff / Slide Review NO; Basophils Absolute Auto 100 /uL (0-100); Basophils Percent Auto 0.8 % (0-2); Eosinophils Absolute Auto 100 /uL (0-450); Eosinophils Percent Auto 1.4 % (2-4); Hematocrit 41.6 % (36-46); Lymphocytes Absolute Auto 2300 /uL (1100-4500); Lymphocytes Percent Auto 31.2 % (25-40); Mean Corpuscular HGB Conc 33.6 % (30-36); Mean Corpuscular Hemoglobin 28.8 PG (26-34); Mean Corpuscular Volume 85.8 fL (80-100); Monocytes Absolute Auto 600 /uL (0-900); Monocytes Percent Auto 7.9 % (3-14); Neutrophils Absolute Auto 4400 /uL (1500-7000); Neutrophils Percent Auto 58.7 % (50-75); Platelet Count 392 X10^3/uL (150-400); Red Blood Cell Count 4.85 X10^6/uL (4.0-5.2); Red Cell Distribution Width 13.8 % (11.6-14.8); White Blood Cell Count 7.5 X10^3/uL (4.5-11.0)
[2024-06-18] MEDS: SODIUM CHLORIDE 0.9% 1,000 ML 1000 ML IV (07:54)
[2024-06-18] MEDS: HYDROMORPHONE 2 MG INJ 0.5 MG IV ×2 (07:55→08:32)
[2024-06-18] MEDS: ONDANSETRON 4 MG/2 ML INJ IV (07:55)
[2024-06-18 07:57] LABS: Alanine Aminotransferase 19 IU/L (<35); Albumin 4.6 g/dL (3.5-5.0); Albumin Globulin Ratio 1.8 (1.0-2.8); Alkaline Phosphatase 93 U/L (38-126); Aspartate Aminotransferase 27 IU/L (14-36); BUN Creatinine Ratio 6.2 (6-22); Bilirubin Total 0.9 mg/dL (0.2-1.3); Blood Urea Nitrogen 5 mg/dL (7-17); Carbon Dioxide 23 mmol/L (22-32); Chloride 108 mmol/L (98-107); Estimated Glomerular Filt Rate > 60 mL/min (>60); Globulin 2.6 g/dL (1.7-4.1); Glucose 129 mg/dL (70-100); HEMOLYSIS < 15 (0-50); Lipase 140 U/L (23-300); Potassium 3.9 mmol/L (3.4-5.1); Sodium 138 mmol/L (137-145); Total Protein 7.2 g/dL (6.3-8.2)
[2024-06-18 08:13] LABS: HCG Quantitative /Beta subunit < 2.39 mIU/mL
[2024-06-18] MEDS: diphenhydrAMINE 50 MG/ML VIAL IV (08:32)
[2024-06-18] MEDS: PROCHLORPERAZINE 10 MG/2 ML VIAL 5 MG IV (08:32)
--- NOTE | 2024-06-18 08:47 | DI.CT.S_ITS ---
PROCEDURE: CT ABDOMEN PELVIS W CON INDICATIONS: abd pain TECHNIQUE: After the administration of intravenous contrast, axial sections acquired from the lung bases to the pubic symphysis. Coronal and sagittal reformats were performed. For radiation dose reduction, the following was used: automated exposure control, adjustment of mA and/or kV according to patient size. COMPARISON: [facility], CT, CT ABDOMEN PELVIS W CON, 02/01/2024, 23:42. FINDINGS: Image quality: Diagnostic. Lower Chest: No significant findings. ABDOMEN: Liver: No solid mass. Gallbladder: Gallbladder is surgically absent. Biliary ducts: No biliary dilation. Pancreas: No ductal dilation. Spleen: Size is within normal limits. Adrenal Glands: No adrenal nodules. Kidneys and Ureters: No hydronephrosis. No solid mass. No complex renal cystic lesion which requires follow up. Stomach and Bowel: Nonspecific fluid distension of distal small bowel loops is seen without focal zone of transition or air-fluid levels. [id number] fecal stasis in ascending colon is seen. No bowel obstruction. No abscess collection. No abnormal bowel wall thickening. Peritoneum: No abnormal intraperitoneal fluid. No free air. Ventral Wall: No significant ventral hernia. Abdominal Nodes: No retroperitoneal or mesenteric adenopathy by size criteria. Vessels: Aorta and inferior vena cava are normal in size. Postsurgical changes from prior surgical repositioning of the left renal vein is again seen unchanged from prior studies. PELVIS: Pelvic Organs: Unremarkable. Bladder: No bladder wall thickening, accounting for underdistention. Pelvic Nodes: No enlarged lymph nodes. Miscellaneous: No inguinal hernias are seen. Bones: No aggressive osseous abnormality. IMPRESSION: 1. Nonspecific mild fluid distension of mid to distal small bowel loops with wall enhancement which can be seen associated with low-grade enteritis. No bowel obstruction. No abnormal bowel wall thickening. No free fluid or free air. 2. Postsurgical changes from prior of left renal vein repositioning with vascular graft in place. No aortic aneurysm or dissection. 3. Prior cholecystectomy. Dictated by: Heber Mauricio M.D. on 06/18/2024 at 9:16 Approved by: Heber Mauricio M.D. on 06/18/2024 at 9:22
[2024-06-18] MEDS: MORPHINE 4 MG/ML INJ IV (09:38)
[2024-06-18] MEDS: DICYCLOMINE 10 MG CAPSULE 20 MG PO (09:54)
--- NOTE | 2024-06-18 10:02 | PC.NURSE ---
Pt expresses that her pain is beginning to resolve after morphine. States that she is still having some cramping, but nausea has resolved. Pt skin dry and pink.
== END 2024-06-18 11:09 | disposition home or self-care (01) ==
PROVIDERS: Emergency Provider Emergency Medicine; PCP Family Medicine
DX: K52.9 Noninfective gastroenteritis and colitis, unspecified (principal); R10.33 Periumbilical pain; Z87.19 Personal history of other diseases of the digestive system; Z90.49 Acquired absence of other specified parts of digestive tract; Z98.890 Other specified postprocedural states
CPT/HCPCS: 36415; 74177; 80053; 83690; 84702; 85025; 96361; 96374; 96375; 96376; 99284; J0780; J1171; J1200; J2270; J2405; Q9967

== ENCOUNTER 2025-01-27 17:19 | Emergency (ER) | payer OTHER, SELFPAY ==
[2024-02-01 20:47] VITALS: BMI 18.1
[2025-01-27] VITALS (11 sets, daily range): BP systolic 101–119; BP diastolic 56–84; PULSE 70–131; RESP 16–39; TEMP 36.1; O2SAT 90–100; BMI 15.5
--- NOTE | 2025-01-27 17:43 | EKG_ITS ---
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
[2025-01-27 18:00] LABS: Add Manual Diff / Slide Review NO; Hematocrit 42.7 % (36-46); Hemoglobin 14.3 g/dL (12.0-16.0); Lymphocytes Absolute Auto 800 /uL (1100-4500); Mean Corpuscular HGB Conc 33.6 % (30-36); Mean Corpuscular Hemoglobin 29.9 PG (26-34); Mean Corpuscular Volume 88.9 fL (80-100); Platelet Count 441 X10^3/uL (150-400)
[2025-01-27] MEDS: SODIUM CHLORIDE 0.9% 1,000 ML 1000 ML IV ×2 (18:00→19:30)
[2025-01-27] MEDS: ONDANSETRON 4 MG/2 ML INJ IV ×2 (18:00→18:31)
[2025-01-27 18:18] LABS: Alanine Aminotransferase 27 IU/L (<35); Albumin 5.1 g/dL (3.5-5.0); Albumin Globulin Ratio 1.8 (1.0-2.8); Alkaline Phosphatase 91 U/L (38-126); Blood Urea Nitrogen 9 mg/dL (7-17); Calcium 9.6 mg/dL (8.4-10.2); Carbon Dioxide 15 mmol/L (22-32); Chloride 108 mmol/L (98-107); Estimated Glomerular Filt Rate > 60 mL/min (>60); Globulin 2.8 g/dL (1.7-4.1); Glucose 181 mg/dL (70-99); HEMOLYSIS < 15 (0-50); Lipase 89 U/L (23-300); Potassium 3.7 mmol/L (3.4-5.1); Sodium 139 mmol/L (137-145); Total Protein 7.9 g/dL (6.3-8.2)
--- NOTE | 2025-01-27 18:21 | ED.ABDPAIN ---
HPI - Abdominal Pain General Chief Complaint: Abdominal Pain Stated Complaint: possible blockage, Gastroparesis, throwing up Time Seen by Provider: 01/27/25 17:46 Source: patient Mode of arrival: Ambulatory History of Present Illness HPI narrative: 24-year-old female with complex abdominopelvic history, prior gallbladder surgery, prior appendectomy, prior renal vein transplantation done at [facility] by Dr. Larry reagan February 2024, recurrent episodes nausea and vomiting, prior reported intussusception episodes but no related excisions for this problem, followed by Gastroenterology Dr. Siobhan ramires at [facility], saw Siobhan ramires earlier today and seemed to be doing well, through the day since that visit having multiple episodes of nonbloody emesis. No black or red stools. Generalized abdominal pain. Related Data Home Medications ?Medication ?Instructions ?Recorded ?Confirmed gabapentin 100 mg capsule 100 mg PO DAILY 12/08/21 12/08/21 levonorgestrel 0.15 mg-ethinyl 1 tab PO DAILY 12/08/21 12/08/21 estradiol 30 mcg tablets,3 mos pack(91) (Jolessa) linaclotide 72 mcg capsule 72 mcg PO DAILY 12/08/21 12/08/21 (Linzess) sertraline 100 mg tablet (Zoloft) 100 mg PO DAILY 12/08/21 12/08/21 sertraline 25 mg tablet (Zoloft) 25 mg PO DAILY 12/08/21 12/08/21 Previous Rx's ?Medication ?Instructions ?Recorded metformin 500 mg tablet 250 mg (1/2 x 500 mg) PO DAILY #30 02/17/22 tabs pantoprazole 40 mg tablet,delayed 40 mg PO DAILY #30 tabs 06/04/22 release ondansetron 4 mg disintegrating 4 mg PO Q6H PRN nausea and 02/02/24 tablet vomiting #7 tabs dicyclomine 20 mg tablet 20 mg PO TID #30 tabs 06/18/24 Allergies Allergy/AdvReac Type Severity Reaction Status Date / Time metoclopramide (From Reglan) AdvReac Anxiety Verified 06/04/22 17:25 Patient History Medical History (Updated 01/27/25 @ 21:36 by Ari Walls MD) Painful menstrual periods (~2019) Ovarian cyst Gastroparesis (~2019) History of Meckel's diverticulum Gilbert disease Migraine Anxiety (~2018) Biliary dyskinesia Chronic abdominal pain Surgical History (Updated 12/25/21 @ 20:32 by Angie Billings) Anesthesia History of abdominal surgery (~2018) History of appendectomy (~2020) S/P laparoscopic surgery (~2018) Hx of cholecystectomy (06/25/18) History of arthroscopic knee surgery Family History (Updated 12/25/21 @ 20:33 by Angie Billings) Mother Healthy adult Father Healthy adult Sister Healthy adult Sister Healthy adult Sister Healthy adult Grandmother Colon cancer Diabetes mellitus Social History household members: significant other and other occupational status: student alcohol intake: never substance use type: marijuana alcohol intake frequency: a few times a month Exam Narrative Exam Narrative: GENERAL: Well-developed patient, in mild distress. HEAD: Atraumatic. Normocephalic. EYES: Pupils equal round and reactive. Extraocular motions intact. No scleral icterus. No injection or drainage. ENT: Nose without bleeding, purulent drainage. Face without obvious trauma. Airway patent. NECK: Trachea midline. Non tender CARDIOVASCULAR: Fast rate regular rhythm without murmurs, gallops, or rubs. RESPIRATORY: Clear to auscultation. Breath sounds equal bilaterally. No wheezes, rales, or rhonchi. GASTROINTESTINAL: Abdomen soft, non-tender, nondistended. EXTREMITIES: No edema or joint tenderness. BACK: Nontender without deformity or crepitance. No flank tenderness. NEURO: AOx3. Motor functions grossly nonfocal. SKIN: No rash or erythema of visible areas Initial Vital Signs Initial Vital Signs: Vital Signs Temperature 97.0 F L 01/27/25 17:24 Pulse Rate 131 H 01/27/25 17:24 Respiratory Rate 22 01/27/25 17:24 Blood Pressure 117/82 01/27/25 17:24 Pulse Oximetry 99 01/27/25 17:24 Oxygen Delivery Method Room Air 01/27/25 17:24 Course Orders Ordered: Discontinued Medications Hydromorphone HCl (Hydromorphone Hcl 0.5 Mg/0.5 Ml Syringe) 0.5 mg IV NOW ONE Stop: 01/27/25 18:23 Last Admin: 01/27/25 18:33 Dose: 0.5 mg Documented By: Hydromorphone HCl (Hydromorphone Hcl 0.5 Mg/0.5 Ml Syringe) 0.5 mg IV NOW ONE Stop: 01/27/25 18:47 Last Admin: 01/27/25 19:54 Dose: 0.5 mg Documented By: Hydromorphone HCl (Hydromorphone Hcl 0.5 Mg/0.5 Ml Syringe) 0.5 mg IV NOW ONE Stop: 01/27/25 21:56 Last Admin: 01/27/25 22:00 Dose: 0.5 mg Documented By: ROSEMARY Sodium Chloride (Normal Saline 0.9%) 1,000 mls @ 1,000 mls/hr IV BOLUS ONE Stop: 01/27/25 18:54 Last Infusion: 01/27/25 19:30 Dose: Infused Documented By: Admin: 01/27/25 18:00 Dose: 1,000 mls/hr Documented By: Sodium Chloride (Normal Saline 0.9%) 1,000 mls @ 1,000 mls/hr IV BOLUS ONE Stop: 01/27/25 19:21 Last Infusion: 01/27/25 20:37 Dose: Infused Documented By: Admin: 01/27/25 19:30 Dose: 1,000 mls/hr Documented By: Ondansetron HCl (Ondansetron 4 Mg Odt) 4 mg PO NOW ONE Stop: 01/27/25 17:56 Last Admin: 01/27/25 19:31 Dose: Not Given Documented By: Ondansetron HCl (Ondansetron 4 Mg/2 Ml Inj) 4 mg IV NOW ONE Stop: 01/27/25 17:56 Last Admin: 01/27/25 18:00 Dose: 4 mg Documented By: Ondansetron HCl (Ondansetron 4 Mg/2 Ml Inj) 4 mg IV NOW ONE Stop: 01/27/25 18:23 Last Admin: 01/27/25 18:31 Dose: 4 mg Documented By: Ondansetron HCl (Ondansetron 4 Mg/2 Ml Inj) 4 mg IV NOW ONE Stop: 01/27/25 18:47 Last Admin: 01/27/25 19:57 Dose: Not Given Documented By: Vital Signs Vital signs: Vital Signs - 8 hr 01/27/25 21:15 01/27/25 21:15 01/27/25 21:30 Pulse Rate 87 Respiratory Rate 22 Blood Pressure 105/57 L 104/59 L Pulse Oximetry 97 Oxygen Delivery Method 01/27/25 21:30 01/27/25 21:45 01/27/25 21:45 Pulse Rate 89 94 H Respiratory Rate 23 16 Blood Pressure 112/68 Pulse Oximetry 97 97 Oxygen Delivery Method Room Air Room Air 01/27/25 22:00 01/27/25 22:00 Pulse Rate 70 Respiratory Rate 22 Blood Pressure 101/56 L Pulse Oximetry 98 Oxygen Delivery Method Room Air MDM - Abdominal Pain Lab Data Attestation: I reviewed the patient's lab results. Lab results narrative: White blood cell count 9300, hemoglobin 14.3, platelets 441. Glucose 181. Normal renal function. Serum CO2 decreased 15, electrolytes unremarkable including potassium 3.7 normal. Total bilirubin 1.9 with other liver functions normal. Lipase 89. Lactate 6.0 elevated. 01/27/25 17:40 01/27/25 17:40 Labs: Lab Results 01/27/25 01/27/25 01/27/25 Range/Units 17:40 18:06 18:36 WBC 19.3 H (4.5-11.0) X10^3/uL RBC 4.80 (4.0-5.2) X10^6/uL Hgb 14.3 (12.0-16.0) g/dL Hct 42.7 (36-46) % MCV 88.9 (80-100) fL MCH 29.9 (26-34) PG MCHC 33.6 (30-36) % RDW 12.8 (11.6-14.8) % Plt Count 441 H (150-400) X10^3/uL Neut % (Auto) 91.6 H (50-75) % Lymph % (Auto) 4.4 L (25-40) % [place]ville % (Auto) 3.7 (3-14) % Eos % (Auto) 0.0 L (2-4) % Baso % (Auto) 0.3 (0-2) % Neut # (Auto) 06947 H (0616-5195) /uL Lymph # (Auto) 800 L (3334-8140) /uL Granville # (Auto) 700 (0-900) /uL Eos # (Auto) 0 (0-450) /uL Baso # (Auto) 100 (0-100) /uL Sodium 139 (137-145) mmol/L Potassium 3.7 (3.4-5.1) mmol/L Chloride 108 H (98-107) mmol/L Carbon Dioxide 15 L (22-32) mmol/L BUN 9 (7-17) mg/dL Creatinine 0.71 (0.52-1.04) mg/dL Estimated GFR > 60 (>60) mL/min BUN/Creatinine Ratio 12.7 (6-22) Glucose 181 H (70-99) mg/dL Lactate 6.0 H* (0.7-2.1) mmol/L Calcium 9.6 (8.4-10.2) mg/dL Total Bilirubin 1.9 H (0.2-1.3) mg/dL AST 31 (14-36) IU/L ALT 27 (<35) IU/L Alkaline Phosphatase 91 (38-126) U/L Total Protein 7.9 (6.3-8.2) g/dL Albumin 5.1 H (3.5-5.0) g/dL Globulin 2.8 (1.7-4.1) g/dL Albumin/Globulin Ratio 1.8 (1.0-2.8) Lipase 89 (23-300) U/L Procalcitonin 0.035 (<0.5) ng/mL Ur Bilirubin Confirm Negative (Negative) Urine RBC 1-5/hpf (0-5/HPF) Urine WBC 0-1/hpf (0-5/HPF) Ur Squamous Epith Cells 1-5 /hpf (0-5/HPF) Urine Bacteria Occasional (0-1) (None) Granular Casts 0-1/lpf (None) Urine Mucus 1+ H (Negative) Ur Culture Indicated? Cult not indicated Vol Urine Centrifuged 10ml (spun) 01/27/25 Range/Units 20:30 WBC (4.5-11.0) X10^3/uL RBC (4.0-5.2) X10^6/uL Hgb (12.0-16.0) g/dL Hct (36-46) % MCV (80-100) fL MCH (26-34) PG MCHC (30-36) % RDW (11.6-14.8) % Plt Count (150-400) X10^3/uL Neut % (Auto) (50-75) % Lymph % (Auto) (25-40) % Granville % (Auto) (3-14) % Eos % (Auto) (2-4) % Baso % (Auto) (0-2) % Neut # (Auto) (0024-3095) /uL Lymph # (Auto) (2799-0481) /uL Granville # (Auto) (0-900) /uL Eos # (Auto) (0-450) /uL Baso # (Auto) (0-100) /uL Sodium (137-145) mmol/L Potassium (3.4-5.1) mmol/L Chloride (98-107) mmol/L Carbon Dioxide (22-32) mmol/L BUN (7-17) mg/dL Creatinine (0.52-1.04) mg/dL Estimated GFR (>60) mL/min BUN/Creatinine Ratio (6-22) Glucose (70-99) mg/dL Lactate 1.3 (0.7-2.1) mmol/L Calcium (8.4-10.2) mg/dL Total Bilirubin (0.2-1.3) mg/dL AST (14-36) IU/L ALT (<35) IU/L Alkaline Phosphatase (38-126) U/L Total Protein (6.3-8.2) g/dL Albumin (3.5-5.0) g/dL Globulin (1.7-4.1) g/dL Albumin/Globulin Ratio (1.0-2.8) Lipase (23-300) U/L Procalcitonin (<0.5) ng/mL Ur Bilirubin Confirm (Negative) Urine RBC (0-5/HPF) Urine WBC (0-5/HPF) Ur Squamous Epith Cells (0-5/HPF) Urine Bacteria (None) Granular Casts (None) Urine Mucus (Negative) Ur Culture Indicated? Vol Urine Centrifuged Point of care testing: Point of Care Testing Test Results Negative Urine Dip Bedside Urine Glucose Negative Bedside Urine Bilirubin + 1 Bedside Urine Ketone ++ 40 Urine Specific Capay 1.030 Bedside Urine Occult Blood +/- Bedside Urine pH 6.0 Bedside Urine Protein ++ 100 Bedside Urine Urobilinogen - Negative Bedside Urine Nitrite - Negative Bedside Urine Leukocytes - Negative Esterase Imaging Data CT scan - abdomen/pelvis: Radiologist's Impression: [address] [address] [address] Scan Report Signed Patient: Vanessa Ortiz MR#: [id number] : 2000 Acct:[id number] Age/Sex: 24 / F Date of Service: 01/27/25 Loc: ED Accession Number: [id number] Procedure: CT abdomen pelvis w con Ordering Provider: Ari Walls MD PROCEDURE: CT ABDOMEN PELVIS W CON INDICATIONS: eval for intuss TECHNIQUE: After the administration of intravenous contrast, axial sections acquired from the lung bases to the pubic symphysis. Coronal and sagittal reformats were performed. For radiation dose reduction, the following was used: automated exposure control, adjustment of mA and/or kV according to patient size. COMPARISON: [facility], CT, CT ABDOMEN PELVIS W CON, 06/18/2024, 8:55. [facility], CT, CT ABDOMEN PELVIS W CON, 02/01/2024, 23:42. FINDINGS: Image quality: Diagnostic. Lower Chest: No significant findings. ABDOMEN: Liver: No solid mass. Gallbladder: Status post cholecystectomy. Biliary ducts: No biliary dilation. Pancreas: No ductal dilation. Spleen: Size is within normal limits. Adrenal Glands: No adrenal nodules. Kidneys and Ureters: No hydronephrosis. No solid mass. No complex renal cystic lesion which requires follow up. Stomach and Bowel: Nondilated fluid-filled loops of small bowel in the distal abdomen. Colon is relatively underdistended. Peritoneum: No abnormal intraperitoneal fluid. No free air. Ventral Wall: No significant ventral hernia. Abdominal Nodes: No retroperitoneal or mesenteric adenopathy by size criteria. Vessels: Aorta and inferior vena cava are normal in size. Left renal vein stent is patent PELVIS: Pelvic Organs: Peripherally enhancing left ovarian cyst is likely physiologic. Trace free fluid in the pelvis is also likely physiologic. Bladder: No bladder wall thickening, accounting for underdistention. Pelvic Nodes: No enlarged lymph nodes. Miscellaneous: No inguinal hernias are seen. Bones: No aggressive osseous abnormality. IMPRESSION: No acute abnormality identified in the abdomen or pelvis. Approved by: Garfield Beck M.D. on 01/27/2025 at 20:24 MDM Narrative Medical decision making narrative: 24-year-old female with history of prior intussusception, prior coli, prior appy, gastroparesis followed by [facility] who she saw earlier today. Since that visit had multiple episodes of nausea and vomiting. Afebrile, sirs screen negative. Increasing abdominal pain, concern about development of intussusception or other problem again. DX consider intussusception, gastritis, PUD, DAKOTAH, UTI/pyelo, colitis, diverticulitis, bowel obstruction, other. Lab data: White blood cell count 9300, hemoglobin 14.3, platelets 441. Glucose 181. Normal renal function. Serum CO2 decreased 15, electrolytes unremarkable including potassium 3.7 normal. Total bilirubin 1.9 with other liver functions normal. Lipase 89. Lactate 6.[address] abdomen and pelvis showed no acute changes. See radiology report. We will repeat IV Zofran dose, IV fluid bolus given. We will repeat lactate. Lactate normalized. Still having pain, repeat IV Dilaudid dose. Symptoms improved, feels like she can go home. Discharged home with father. Follow up with Gastroenterology as planned. Return precautions discussed. Discharge Plan Departure Patient Disposition: Home Clinical Impression: Gastroparesis, Abdominal pain, Dehydration Activity Restrictions/Additional Instructions: History of gastroparesis, having seen your director it project in [place] in fact earlier today, also with history of intussusception in the past, that has so far not prompted any surgical interventions when suspected. After your visit today you have had repeated episodes of nausea and vomiting nonbloody. Initial labs concerning for elevated lactate, possible dehydration, IV fluids and IV antinausea medication and IV pain medications given. Repeat lactate normalized. Symptoms improved. Discharged home. Continue your chronic medications. Follow up with your director it project as planned, call her office tomorrow to let her know of your ER visit after her clinic office visit. Copy of the CT scan provided, no acute changes noted. Return earlier to this/nearest emergency department for any change worsening symptoms or any concerns prior. Prescriptions: No Action metformin 500 mg tablet 250 mg PO DAILY Qty: 30 3RF Rx Instructions: 1/2 tab daily for 2-3 wks and then bid for 2-3 wks levonorgestrel-ethinyl estrad [Jolessa] 0.15 mg-30 mcg (91) tablets,dose pack,3 month 1 tab PO DAILY sertraline [Zoloft] 100 mg tablet 100 mg PO DAILY sertraline [Zoloft] 25 mg tablet 25 mg PO DAILY Linzess 72 mcg capsule 72 mcg PO DAILY gabapentin 100 mg capsule 100 mg PO DAILY pantoprazole 40 mg tablet,delayed release (DR/EC) 40 mg PO DAILY Qty: 30 0RF dicyclomine 20 mg tablet 20 mg PO TID Qty: 30 0RF ondansetron 4 mg tablet,disintegrating 4 mg PO Q6H PRN (Reason: nausea and vomiting) Qty: 7 0RF Referrals: Romero Betancourt MD [Primary Care Provider, Family Practice] Stand Alone Forms: Patient Portal/API
[2025-01-27 18:36] LABS: Lactate (Lactic Acid) 6.0 mmol/L (0.7-2.1)
[2025-01-27 18:45] LABS: Ictotest Urine Negative (Negative)
[2025-01-27 19:02] LABS: Procalcitonin 0.035 ng/mL (<0.5)
--- NOTE | 2025-01-27 19:19 | PC.NURSE ---
Pt reports pain is at a zero now. Pt appears more comfortable.
[2025-01-27 19:39] LABS: Culture Indicated Urine Cult Not Indicated
[2025-01-27 19:58] LABS: Reflexed Lactate in 2 Hours Y
--- NOTE | 2025-01-27 20:38 | PC.NURSE ---
Pt lying back in gurney. Appears in NAD. Pt rates pain 0/10
[2025-01-27 20:49] LABS: Lactate 2HR (Lactic Acid Rflx) 1.3 mmol/L (0.7-2.1)
== END 2025-01-27 22:33 | disposition home or self-care (01) ==
PROVIDERS: Family Medicine; Emergency Provider Emergency Medicine; PCP Family Medicine
DX: K31.84 Gastroparesis (principal); E86.0 Dehydration; R10.84 Generalized abdominal pain
CPT/HCPCS: 36415; 74177; 80053; 81003; 81015; 81025; 83605; 83690; 84145; 85025; 93005; 96361; 96374; 96375; 96376; 99284; J1171; J2405; Q9967